=== PATIENT | female | born 1960 | race Caucasian/White ===

== ENCOUNTER 2019-08-22 09:11 | Observation (INO) | payer BC ==
--- NOTE | 2019-08-22 09:53 | EDM.PDOC ---
ED HPI GENERAL MEDICAL PROBLEM - General Chief Complaint: General Stated Complaint: FROM CLINIC ILL Time Seen by Provider: 08/22/19 09:40 Source of Information: Reports: Patient, Provider History Limitations: Reports: Other (no old records) - History of Present Illness INITIAL COMMENTS - FREE TEXT/NARRATIVE: 59 yo female presented to the clinic today with cough for a week. Drove herself to the appt. Was given a Duoneb in the clinic and got weak and needed support. She was vitally stable before and after this spell. Remains weak so referred to the ER for evaluation. Onset: Sudden (sudden weakness), Gradual (cough) Onset Date: 08/15/19 (cough onset) Duration: Week(s): (1) Location: Reports: Chest Quality: Reports: Other (none) Severity: Moderate Improves with: Reports: None Worsens with: Reports: Other (unsure) Context: Reports: Other (unknown) Associated Symptoms: Reports: Cough. 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 (see below) (Duoneb) - Related Data Allergies Allergy/AdvReac Type Severity Reaction Status Date / Time amoxicillin [From Augmentin] Allergy Cannot Verified 08/22/19 09:43 Remember clavulanic acid Allergy Cannot Verified 08/22/19 09:43 [From Augmentin] Remember codeine AdvReac Nausea Verified 08/22/19 09:43 Home Meds: Home Meds Levothyroxine Sodium [Synthroid] 1 tab PO DAILY 08/22/19 [History] Lysine 1 tab PO DAILY 08/22/19 [History] atorvaSTATin [Lipitor] 1 tab PO DAILY 08/22/19 [History] hydroCHLOROthiazide [Hydrochlorothiazide] 1 tab PO DAILY 08/22/19 [History] Social & Family History - Tobacco Use Smoking Status *Q: Never Smoker - Recreational Drug Use Recreational Drug Use: No ED ROS GENERAL - Review of Systems Review Of Systems: See Below Constitutional: Reports: No Symptoms HEENT: Reports: No Symptoms Respiratory: Reports: Cough. Denies: Shortness of Breath, Wheezing, Pleuritic Chest Pain, Sputum, Hemoptysis Cardiovascular: Reports: No Symptoms GI/Abdominal: Reports: No Symptoms : Reports: No Symptoms Musculoskeletal: Reports: No Symptoms Skin: Reports: No Symptoms Neurological: Reports: Syncope (near syncope in the clinic.) Psychiatric: Reports: No Symptoms ED EXAM, GENERAL - Physical Exam Exam: See Below Exam Limited By: No Limitations General Appearance: Alert, WD/WN, No Apparent Distress, Lethargic Eye Exam: Bilateral Eye: Normal Inspection Ears: Normal External Exam, Normal Canal, Hearing Grossly Normal, Normal TMs Ear Exam: Bilateral Ear: Auricle Normal, Canal Normal, TM normal Nose: Normal Inspection, No Blood Throat/Mouth: Normal Inspection, Normal Lips, Normal Oropharynx, Normal Voice, No Airway Compromise Head: Atraumatic, Normocephalic Neck: Normal Inspection Respiratory/Chest: No Respiratory Distress, Lungs Clear, Normal Breath Sounds, No Accessory Muscle Use Cardiovascular: Regular Rate, Rhythm, No Edema GI/Abdominal: Normal Bowel Sounds, Soft, Non-Tender, No Distention Back Exam: Other (kyphotic spine) Extremities: Normal Inspection, Normal Range of Motion, Non-Tender, No Pedal Edema Neurological: Alert, Oriented, CN II-XII Intact, Normal Cognition, No Motor/ Sensory Deficits Psychiatric: Normal Affect, Normal Mood Skin Exam: Warm, Dry, Intact, Normal Color, No Rash Course - Vital Signs Text/Narrative:: Dr. Underwood called @ 1052h Last Recorded V/S: Last Vital Signs Temp 36.1 C 08/22/19 09:41 Pulse 77 08/22/19 09:41 Resp 16 08/22/19 09:41 BP 150/74 H 08/22/19 09:41 Pulse Ox 95 08/22/19 09:41 Orthostatic Blood Pressure [ 137/87 Standing] Orthostatic Blood Pressure [ 135/83 Sitting] Orthostatic Blood Pressure [ 138/78 Supine] - Orders/Labs/Meds Orders: Active Orders 24 hr Category Date Time Status Cardiac Monitoring [RC] .As Directed Care 08/22/19 10:36 Active Orthostatic Vital Signs [RC] ASDIRECTED Care 08/22/19 09:29 Active Potassium Chloride [KCL 20 MEQ in Water 100 ML] 20 meq Med 08/22/19 10:36 Active Premix Bag 1 bag IV ONETIME Sodium Chloride 0.9% [Saline Flush] Med 08/22/19 10:30 Active 10 ml FLUSH ASDIRECTED PRN Saline Lock Insert [OM.PC] Routine Oth 08/22/19 10:30 Ordered Medication Orders Potassium Chloride 20 meq/ (Premix) 100 mls @ 50 mls/hr IV ONETIME ONE Stop: 08/22/19 12:35 Sodium Chloride (Saline Flush) 10 ml FLUSH ASDIRECTED PRN PRN Reason: Keep Vein Open Labs: Laboratory Tests 08/22/19 08/22/19 08/22/19 Range/Units 10:01 10:01 10:15 WBC 3.8 L (4.5-11.0) K/uL RBC 4.67 (3.30-5.50) M/uL Hgb 13.4 (12.0-15.0) g/dL Hct 41.5 (36.0-48.0) % MCV 89 (80-98) fL MCH 29 (27-31) pg MCHC 32 (32-36) % Plt Count 239 (150-400) K/uL Sodium 142 (140-148) mmol/L Potassium 2.7 L* (3.6-5.2) mmol/L Chloride 101 (100-108) mmol/L Carbon Dioxide 29 (21-32) mmol/L Anion Gap 14.7 H (5.0-14.0) mmol/L BUN 16 (7-18) mg/dL Creatinine 0.7 (0.6-1.0) mg/dL Est Cr Clr Drug Dosing 72.47 mL/min Estimated GFR (MDRD) > 60 (>60) Glucose 89 (74-106) mg/dL Calcium 8.9 (8.5-10.1) mg/dL Magnesium (1.8-2.4) mg/dL Troponin I < 0.017 (0.000-0.056) ng/mL Urine Color Yellow (YELLOW) Urine Appearance Clear (CLEAR) Urine pH 5.5 (5.0-8.0) Ur Specific [facility] 1.020 (1.008-1.030) Urine Protein Negative (NEGATIVE) mg/dL Urine Glucose (UA) Negative (NEGATIVE) mg/dL Urine Ketones 40 H (NEGATIVE) mg/dL Urine Occult Blood Negative (NEGATIVE) Urine Nitrite Negative (NEGATIVE) Urine Bilirubin Negative (NEGATIVE) Urine Urobilinogen 0.2 (0.2-1.0) EU/dL Ur Leukocyte Esterase Negative (NEGATIVE) Urine RBC Not seen (0-5) Urine WBC 0-5 (0-5) Ur Epithelial Cells Not seen Amorphous Sediment Not seen Urine Bacteria Not seen Urine Mucus Moderate 08/22/19 Range/Units 10:36 WBC (4.5-11.0) K/uL RBC (3.30-5.50) M/uL Hgb (12.0-15.0) g/dL Hct (36.0-48.0) % MCV (80-98) fL MCH (27-31) pg MCHC (32-36) % Plt Count (150-400) K/uL Sodium (140-148) mmol/L Potassium (3.6-5.2) mmol/L Chloride (100-108) mmol/L Carbon Dioxide (21-32) mmol/L Anion Gap (5.0-14.0) mmol/L BUN (7-18) mg/dL Creatinine (0.6-1.0) mg/dL Est Cr Clr Drug Dosing mL/min Estimated GFR (MDRD) (>60) Glucose (74-106) mg/dL Calcium (8.5-10.1) mg/dL Magnesium 1.6 L (1.8-2.4) mg/dL Troponin I (0.000-0.056) ng/mL Urine Color (YELLOW) Urine Appearance (CLEAR) Urine pH (5.0-8.0) Ur Specific [facility] (1.008-1.030) Urine Protein (NEGATIVE) mg/dL Urine Glucose (UA) (NEGATIVE) mg/dL Urine Ketones (NEGATIVE) mg/dL Urine Occult Blood (NEGATIVE) Urine Nitrite (NEGATIVE) Urine Bilirubin (NEGATIVE) Urine Urobilinogen (0.2-1.0) EU/dL Ur Leukocyte Esterase (NEGATIVE) Urine RBC (0-5) Urine WBC (0-5) Ur Epithelial Cells Amorphous Sediment Urine Bacteria Urine Mucus Meds: Medications Generic Name Dose Route Start Last Admin Trade Name Freq PRN Reason Stop Dose Admin Potassium Chloride 20 meq/ 100 mls @ 50 mls/hr 08/22/19 10:36 Premix IV 08/22/19 12:35 ONETIME ONE Sodium Chloride 10 ml 08/22/19 10:30 Saline Flush FLUSH ASDIRECTED PRN Keep Vein Open Discontinued Medications Generic Name Dose Route Start Last Admin Trade Name Freq PRN Reason Stop Dose Admin Magnesium Oxide 400 mg 08/22/19 10:50 Magnesium Oxide PO 08/22/19 10:51 ONETIME ONE Potassium Chloride 40 meq 08/22/19 10:35 Potassium Chloride PO 08/22/19 10:36 ONETIME ONE Departure - Departure Time of Disposition: 11:20 Disposition: Refer to Observation Condition: Fair Clinical Impression: Hypokalemia, Hypomagnesemia, Weakness, Cough - Discharge Information *PRESCRIPTION DRUG MONITORING PROGRAM REVIEWED*: Not Applicable *COPY OF PRESCRIPTION DRUG MONITORING REPORT IN PATIENT KITA: Not Applicable Referrals: Estella Mack MD [Primary Care Provider] - Forms: ED Department Discharge Sepsis Event Note - Evaluation Sepsis Screening Result: No Definite Risk - Focused Exam Vital Signs: Vital Signs Temp Pulse Resp BP Pulse Ox 08/22/19 09:41 36.1 C 77 16 150/74 H 95 08/22/19 09:27 36.1 C 77 16 150/74 H 95 Date Exam was Performed: 08/22/19 Time Exam was Performed: 10:53 - My Orders Last 24 Hours: My Active Orders 08/22/19 09:29 Orthostatic Vital Signs [RC] ASDIRECTED 08/22/19 10:30 Sodium Chloride 0.9% [Saline Flush] 10 ml FLUSH ASDIRECTED PRN Saline Lock Insert [OM.PC] Routine 08/22/19 10:36 Cardiac Monitoring [RC] .As Directed Potassium Chloride [KCL 20 MEQ in Water 100 ML] 20 meq Premix Bag 1 bag IV ONETIME - Assessment/Plan Last 24 Hours: My Active Orders 08/22/19 09:29 Orthostatic Vital Signs [RC] ASDIRECTED 08/22/19 10:30 Sodium Chloride 0.9% [Saline Flush] 10 ml FLUSH ASDIRECTED PRN Saline Lock Insert [OM.PC] Routine 08/22/19 10:36 Cardiac Monitoring [RC] .As Directed Potassium Chloride [KCL 20 MEQ in Water 100 ML] 20 meq Premix Bag 1 bag IV ONETIME
[2019-08-22] MEDS ORDERED: Sodium Chloride 0.9% 10 ML Syringe FLUSH PRN ×2 (10:30→12:31)
[2019-08-22] MEDS ORDERED: Potassium Chloride 10 MEQ Cap.ER PO ONE (10:35)
[2019-08-22] MEDS ORDERED: Potassium Chloride 20 MEQ in Premix Bag 1 BAG IV ONE (10:36)
[2019-08-22] MEDS ORDERED: Magnesium Oxide 400 MG Tab PO ONE (10:50)
--- NOTE | 2019-08-22 11:57 | PCM.HP.2 ---
H&P History of Present Illness - General Date of Service: 08/22/19 Admit Problem/Dx: Admission Diagnosis/Problem Admission Diagnosis/Problem Hypokalemia Source of Information: Patient, Family, Provider, RN Notes Reviewed History Limitations: Reports: No Limitations - History of Present Illness Initial Comments - Free Text/Narative: Rev. Valerio is a 59-year-old woman who was admitted through the emergency department observation status with a syncopal episode and weakness secondary to underlying hypokalemia and influenza A. She has not felt well over the past 5 days with symptoms of weakness, myalgias, fever, and cough. Because of progressive symptoms she presented to the walk-in clinic for further evaluation and management. While there she was receiving a nebulizer treatment and experienced a syncopal episode. She was brought to the emergency department for further evaluation and management. Chest x-ray shows no obvious infiltrates. Influenza a antigen was found to be positive explaining her recent respiratory symptoms. Blood cell count was within normal range and other labs were unremarkable except for a potassium level of 2.7. It was felt likely that the albuterol neb had lowered her serum potassium level even further at this likely contributed to her syncopal episode. - Related Data Allergies/Adverse Reactions: Allergies Allergy/AdvReac Type Severity Reaction Status Date / Time amoxicillin [From Augmentin] Allergy Cannot Verified 08/22/19 09:43 Remember clavulanic acid Allergy Cannot Verified 08/22/19 09:43 [From Augmentin] Remember codeine AdvReac Nausea Verified 08/22/19 09:43 Home Medications: Home Meds Levothyroxine Sodium [Synthroid] 137 mcg PO ACBREAKFAST 08/22/19 [History] Lysine 1 tab PO DAILY 08/22/19 [History] atorvaSTATin [Lipitor] 40 mg PO DAILY 08/22/19 [History] hydroCHLOROthiazide [Hydrochlorothiazide] 50 mg PO DAILY 08/22/19 [History] Past Medical History HEENT History: Reports: Impaired Vision Cardiovascular History: Reports: High Cholesterol, Hypertension, [place] [employer] History: Reports: Musculoskeletal History: Reports: Fracture Endocrine/Metabolic History: Reports: Hypothyroidism Hematologic History: Reports: Iron Deficiency Oncologic (Cancer) History: Reports: Breast - Past Surgical History Cardiovascular Surgical History: Reports: Coronary Artery Stent GI Surgical History: Reports: Bariatric Procedure, Cholecystectomy Female Surgical History: Reports: Breast Reconstruction Oncologic Surgical History: Reports: Mastectomy Social & Family History - Tobacco Use Smoking Status *Q: Never Smoker - Recreational Drug Use Recreational Drug Use: No H&P Review of Systems - Review of Systems: Review Of Systems: See Below General: Reports: Fever, Chills, Malaise, Weakness, Decreased Appetite HEENT: Reports: No Symptoms Pulmonary: Reports: Shortness of Breath, Cough. Denies: Pleuritic Chest Pain, Sputum, Hemoptysis Cardiovascular: Reports: Dyspnea on Exertion, Lightheadedness, Syncope. Denies : Chest Pain, Palpitations, Orthopnea, PND, Edema Gastrointestinal: Reports: No Symptoms Genitourinary: Reports: No Symptoms Musculoskeletal: Reports: Muscle Pain, Muscle Stiffness Skin: Reports: No Symptoms Psychiatric: Reports: No Symptoms Neurological: Reports: No Symptoms Hematologic/Lymphatic: Reports: No Symptoms Immunologic: Reports: No Symptoms Exam - Exam Exam: See Below - Vital Signs Vital Signs: Last Vital Signs Temp 97.0 F 08/22/19 09:41 Pulse 89 08/22/19 10:05 Resp 16 08/22/19 10:05 BP 137/87 08/22/19 10:05 Pulse Ox 99 08/22/19 10:05 Orthostatic Blood Pressure [ 137/87 Standing] Orthostatic Blood Pressure [ 135/83 Sitting] Orthostatic Blood Pressure [ 138/78 Supine] Weight: 156 lb - Exam Quality Assessment: DVT Prophylaxis General: Alert, Oriented, Cooperative, Moderate Distress HEENT: Conjunctiva Clear, Hearing Intact, Mucosa Moist & [place], Normal Nasal Septum, Posterior Pharynx Clear, Pupils Equal Neck: Supple, Trachea Midline, +2 Carotid Pulse wo Bruit Lungs: Clear to Auscultation, Normal Respiratory Effort Cardiovascular: Regular Rate, Regular Rhythm, Normal S1, Normal S2. No: Systolic Murmur, Diastolic Murmur GI/Abdominal Exam: Soft, Non-Tender, No Organomegaly, No Distention Back Exam: Normal Inspection, Full Range of Motion Extremities: Normal Inspection, Normal Range of Motion, No Pedal Edema Skin: Warm, Dry, Intact Neurological: Cranial Nerves Intact, Strength Equal Bilateral, Normal Speech, Normal Tone, Sensation Intact. No: Focal Deficit Neuro Extensive - Mental Status: Alert, Oriented x3, Normal Mood/Affect, Normal Cognition, Memory Intact - Patient Data Lab Results Last 24 hrs: Laboratory Results - last 24 hr 08/22/19 08/22/1908/22/20 Range/Units 10:01 10:01 10:15 WBC 3.8 L (4.5-11.0) K/uL RBC 4.67 (3.30-5.50) M/uL Hgb 13.4 (12.0-15.0) g/dL Hct 41.5 (36.0-48.0) % MCV 89 (80-98) fL MCH 29 (27-31) pg MCHC 32 (32-36) % Plt Count 239 (150-400) K/uL Sodium 142 (140-148) mmol/L Potassium 2.7 L* (3.6-5.2) mmol/L Chloride 101 (100-108) mmol/L Carbon Dioxide 29 (21-32) mmol/L Anion Gap 14.7 H (5.0-14.0) mmol/L BUN 16 (7-18) mg/dL Creatinine 0.7 (0.6-1.0) mg/dL Est Cr Clr Drug Dosing 72.47 mL/min Estimated GFR (MDRD) > 60 (>60) Glucose 89 (74-106) mg/dL Calcium 8.9 (8.5-10.1) mg/dL Magnesium (1.8-2.4) mg/dL Troponin I < 0.017 (0.000-0.056) ng/mL Urine Color Yellow (YELLOW) Urine Appearance Clear (CLEAR) Urine pH 5.5 (5.0-8.0) Ur Specific [place] 1.020 (1.008-1.030) Urine Protein Negative (NEGATIVE) mg/dL Urine Glucose (UA) Negative (NEGATIVE) mg/dL Urine Ketones 40 H (NEGATIVE) mg/dL Urine Occult Blood Negative (NEGATIVE) Urine Nitrite Negative (NEGATIVE) Urine Bilirubin Negative (NEGATIVE) Urine Urobilinogen 0.2 (0.2-1.0) EU/dL Ur Leukocyte Esterase Negative (NEGATIVE) Urine RBC Not seen (0-5) Urine WBC 0-5 (0-5) Ur Epithelial Cells Not seen Amorphous Sediment Not seen Urine Bacteria Not seen Urine Mucus Moderate 08/22/19 Range/Units 10:36 WBC (4.5-11.0) K/uL RBC (3.30-5.50) M/uL Hgb (12.0-15.0) g/dL Hct (36.0-48.0) % MCV (80-98) fL MCH (27-31) pg MCHC (32-36) % Plt Count (150-400) K/uL Sodium (140-148) mmol/L Potassium (3.6-5.2) mmol/L Chloride (100-108) mmol/L Carbon Dioxide (21-32) mmol/L Anion Gap (5.0-14.0) mmol/L BUN (7-18) mg/dL Creatinine (0.6-1.0) mg/dL Est Cr Clr Drug Dosing mL/min Estimated GFR (MDRD) (>60) Glucose (74-106) mg/dL Calcium (8.5-10.1) mg/dL Magnesium 1.6 L (1.8-2.4) mg/dL Troponin I (0.000-0.056) ng/mL Urine Color (YELLOW) Urine Appearance (CLEAR) Urine pH (5.0-8.0) Ur Specific [place] (1.008-1.030) Urine Protein (NEGATIVE) mg/dL Urine Glucose (UA) (NEGATIVE) mg/dL Urine Ketones (NEGATIVE) mg/dL Urine Occult Blood (NEGATIVE) Urine Nitrite (NEGATIVE) Urine Bilirubin (NEGATIVE) Urine Urobilinogen (0.2-1.0) EU/dL Ur Leukocyte Esterase (NEGATIVE) Urine RBC (0-5) Urine WBC (0-5) Ur Epithelial Cells Amorphous Sediment Urine Bacteria Urine Mucus Result Diagrams: 08/22/19 10:01 08/22/19 10:01 Sepsis Event Note - Evaluation Sepsis Screening Result: No Definite Risk - Focused Exam Vital Signs: Vital Signs Temp Pulse Resp BP Pulse Ox 08/22/19 10:05 89 16 137/87 99 08/22/19 09:41 97.0 F 77 16 150/74 H 95 08/22/19 09:27 97.0 F 77 16 150/74 H 95 Date Exam was Performed: 08/22/19 Time Exam was Performed: 13:35 *Q Meaningful Use (ADM) - VTE Risk Assess *Q Each Risk Factor Represents 1 Point: Age 41 - 59 years Total Score 1 Point Risk Factors: 1 Each Risk Factor Represents 2 Points: Malignancy (present or previous) Total Score 2 Point Risk Factors: 2 Each Risk Factor Represents 3 Points: None Total Score 3 Point Risk Factors: 0 Each Risk Factor Represents 5 Points: None Total Score 5 Point Risk Factors: 0 Venous Thromboembolism Risk Factor Score *Q: 3 Problem List Initiated/Reviewed/Updated: Yes Orders Last 24hrs: Active Orders 24 hr Category Date Time Status Patient Status Manage Transfer [TRANSFER] Routine ADT 08/22/19 11:47 Ordered Cardiac Monitoring [RC] .As Directed Care 08/22/19 10:36 Active Orthostatic Vital Signs [RC] ASDIRECTED Care 08/22/19 09:29 Active Chest 2V [CR] Stat Exams 08/22/19 11:44 Ordered INFLUENZA A+B AG SCREEN [RM] Stat Lab 08/22/19 11:45 Ordered Potassium Chloride [KCL 20 MEQ in Water 100 ML] 20 meq Med 08/22/19 10:36 Active Premix Bag 1 bag IV ONETIME Sodium Chloride 0.9% [Saline Flush] Med 08/22/19 10:30 Active 10 ml FLUSH ASDIRECTED PRN Saline Lock Insert [OM.PC] Routine Oth 08/22/19 10:30 Ordered Resuscitation Status Routine Resus Stat 08/22/19 11:49 Ordered Medication Orders Potassium Chloride 20 meq/ (Premix) 100 mls @ 50 mls/hr IV ONETIME ONE Stop: 08/22/19 12:35 Last Admin: 08/22/19 10:55 Dose: 50 mls/hr Sodium Chloride (Saline Flush) 10 ml FLUSH ASDIRECTED PRN PRN Reason: Keep Vein Open Last Admin: 08/22/19 10:56 Dose: 10 ml Assessment/Plan Comment:: ASSESSMENT AND PLAN HYPOKALEMIA-likely secondary to ongoing therapy with hydrochlorothiazide -IV and oral potassium replacement -Follow-up potassium level later tonight and again in a.m. -Consider switching antihypertensive therapy to a medication with combined hydrochlorothiazide and Spironolactone SYNCOPAL EPISODE-likely secondary to current infection with influenza A as well as hypokalemia and exacerbation of hypokalemia with the albuterol neb. -Cardiac monitoring -Orthostatic vital signs INFLUENZA A-because of her respiratory symptoms over the past 5 days. She is not a candidate for Tamiflu because of duration of symptoms over 48 hours. -IV fluids for hydration -Supportive care and symptom management MAINTENANCE ISSUES -DVT prophylaxis; SCUDs -GI prophylaxis; not indicated -Miguel catheter; not indicated -Nutrition; 2 g sodium diet -Nicotine dependence; not required CODE STATUS-FULL CODE ADMISSION STATUS-this patient will be admitted to observation status, expect no more than a one night hospital stay for evaluation and management of problems as outlined above. DISPOSITION-anticipate discharge to home after the hospital stay. PRIMARY CARE PROVIDER-Dr. Mack - Mortality Measure Prognosis:: Good
[2019-08-22] MEDS ORDERED: Ondansetron 4 MG/2 ML SDV IV PRN (12:31)
[2019-08-22] MEDS ORDERED: Ibuprofen 400 MG Tab PO PRN (12:31)
[2019-08-22] MEDS ORDERED: Polyethylene Glycol 3350 Powder 17 GM Packet PO PRN (12:31)
[2019-08-22] MEDS ORDERED: Acetaminophen 325 MG Tab PO PRN (12:31)
[2019-08-22] MEDS ORDERED: Potassium Chloride 20 MEQ Tab.ER PO ONE ×2 (13:00→17:00)
[2019-08-22] MEDS: Sodium Chloride 0.9% 1,000 ML IV SCH ×2 (13:07→20:51)
[2019-08-22] MEDS ORDERED: Potassium Chloride Riders 40 MEQ in Premix Bag 1 BAG IV ONE (13:30)
[2019-08-22] MEDS: guaiFENesin/Dextromethorphan 100-10 MG/5 ML Soln 10 ML Cup PO PRN ×2 (14:55→21:02)
[2019-08-23] MEDS: Sodium Chloride 0.9% 1,000 ML IV SCH (04:59)
[2019-08-23] MEDS ORDERED: Non-Formulary Medication 1 Each (Hydrochlorothiazide [Hydrochlorothiazide] 1 TAB) PO SCH (09:00)
[2019-08-23] MEDS ORDERED: LEVOTHYROXINE SODIUM PO SCH (09:00)
[2019-08-23] MEDS ORDERED: atorvaSTATin 20 MG Tab PO SCH (09:00)
[2019-08-23] MEDS ORDERED: Hydrochlorothiazide 25 MG Tab PO SCH (09:00)
[2019-08-23] MEDS ORDERED: ATORVASTATIN PO SCH (09:00)
--- NOTE | 2019-08-23 09:07 | PCM.DCSUM1 ---
Discharge Summary - Hospital Course Brief History: Rev. Valerio is a 60-year-old woman who was admitted through the emergency department after a syncopal episode, secondary to hypokalemia and influenza a. - Discharge Data Discharge Date: 08/23/19 Discharge Disposition: Home, Self-Care 01 Condition: Fair - Referral to Home Health Primary Care Physician: Estella Mack MD - Discharge Diagnosis/Problem(s) (1) Influenza A SNOMED Code(s): 266487823 ICD Code: J10.1 - FLU DUE TO OTH IDENT INFLUENZA VIRUS W OTH RESP MANIFEST Status: Acute Current Visit: Yes (2) Hypokalemia SNOMED Code(s): 78496474 ICD Code: E87.6 - HYPOKALEMIA Status: Acute Current Visit: Yes (3) Weakness SNOMED Code(s): 08338251 ICD Code: R53.1 - WEAKNESS Status: Acute Current Visit: Yes - Patient Summary/Data Hospital Course: Rev. Valerio is a 59-year-old woman who was admitted through the emergency department to observation status with a syncopal episode and weakness secondary to underlying hypokalemia and influenza A. She has not felt well over the past 5 days with symptoms of weakness, myalgias, fever, and cough. Because of progressive symptoms she presented to the walk-in clinic for further evaluation and management. While there she was receiving a nebulizer treatment and experienced a syncopal episode. She was brought to the emergency department for further evaluation and management. Chest x-ray shows no obvious infiltrates. Influenza a antigen was found to be positive explaining her recent respiratory symptoms. White blood cell count was within normal range and other labs were unremarkable except for a potassium level of 2.7. It was felt likely that the albuterol neb had lowered her serum potassium level even further and this likely contributed to her syncopal episode. She was admitted to the hospital and given IV fluids for hydration. She was not started on Tamiflu as the duration of her symptoms had been over 48 hours. She was given IV and oral potassium replacement. Follow-up potassium level on the evening of admission showed the potassium level had returned to normal range. Follow-up potassium level on the morning of discharge also remained within normal range. Antihypertensive therapy will be altered, hydrochlorothiazide 50 mg will be discontinued. She will be started on triamterene hydrochlorothiazide better maintain her potassium level. Activity will be as tolerated and she will resume her usual diet. Follow-up appointment will be scheduled with her primary care provider within 1 week. - Patient Instructions Diet: Low Sodium Activity: As Tolerated Other/Special Instructions: Please schedule follow-up appointment with primary care provider within 1 week. - Discharge Plan *PRESCRIPTION DRUG MONITORING PROGRAM REVIEWED*: Not Applicable *COPY OF PRESCRIPTION DRUG MONITORING REPORT IN PATIENT KITA: Not Applicable Prescriptions/Med Rec: Triamterene/Hydrochlorothiazid [Dyazide 37.5-25 Capsule] 1 each PO DAILY #30 capsule Home Medications: Home Meds Levothyroxine Sodium [Synthroid] 137 mcg PO ACBREAKFAST 08/22/19 [History] Lysine 1 tab PO DAILY 08/22/19 [History] atorvaSTATin [Lipitor] 40 mg PO DAILY 08/22/19 [History] Triamterene/Hydrochlorothiazid [Dyazide 37.5-25 Capsule] 1 each PO DAILY #30 capsule 08/23/19 [Rx] Patient Handouts: Hypokalemia, Potassium Content of Foods Referrals: Estella Mack MD [Primary Care Provider] - - Discharge Summary/Plan Comment DC Time >30 min.: No - Patient Data Vitals - Most Recent: Last Vital Signs Temp 97.1 F 08/23/19 07:44 Pulse 62 08/22/19 17:00 Resp 14 08/23/19 07:44 BP 135/80 08/23/19 07:44 Pulse Ox 97 08/23/19 07:44 Orthostatic Blood Pressure [ 124/71 Standing] Orthostatic Blood Pressure [ 124/78 Sitting] Orthostatic Blood Pressure [ 112/48 Supine] Weight - Most Recent: 156 lb I&O - Last 24 hours: Intake & Output 08/22/19 08/23/19 08/23/19 22:59 06:59 14:59 Intake Total 100 2202 Output Total 450 500 Balance -350 1702 Lab Results - Last 24 hrs: Laboratory Results - last 24 hr 08/22/19 08/22/19 08/22/19 Range/Units 10:01 10:01 10:15 WBC 3.8 L (4.5-11.0) K/uL RBC 4.67 (3.30-5.50) M/uL Hgb 13.4 (12.0-15.0) g/dL Hct 41.5 (36.0-48.0) % MCV 89 (80-98) fL MCH 29 (27-31) pg MCHC 32 (32-36) % Plt Count 239 (150-400) K/uL Sodium 142 (140-148) mmol/L Potassium 2.7 L* (3.6-5.2) mmol/L Chloride 101 (100-108) mmol/L Carbon Dioxide 29 (21-32) mmol/L Anion Gap 14.7 H (5.0-14.0) mmol/L BUN 16 (7-18) mg/dL Creatinine 0.7 (0.6-1.0) mg/dL Est Cr Clr Drug Dosing 72.47 mL/min Estimated GFR (MDRD) > 60 (>60) Glucose 89 (74-106) mg/dL Calcium 8.9 (8.5-10.1) mg/dL Magnesium (1.8-2.4) mg/dL Troponin I < 0.017 (0.000-0.056) ng/mL TSH, Ultra Sensitive (0.358-3.740) uIU/mL Urine Color Yellow (YELLOW) Urine Appearance Clear (CLEAR) Urine pH 5.5 (5.0-8.0) Ur Specific [place] 1.020 (1.008-1.030) Urine Protein Negative (NEGATIVE) mg/dL Urine Glucose (UA) Negative (NEGATIVE) mg/dL Urine Ketones 40 H (NEGATIVE) mg/dL Urine Occult Blood Negative (NEGATIVE) Urine Nitrite Negative (NEGATIVE) Urine Bilirubin Negative (NEGATIVE) Urine Urobilinogen 0.2 (0.2-1.0) EU/dL Ur Leukocyte Esterase Negative (NEGATIVE) Urine RBC Not seen (0-5) Urine WBC 0-5 (0-5) Ur Epithelial Cells Not seen Amorphous Sediment Not seen Urine Bacteria Not seen Urine Mucus Moderate 08/22/19 08/22/19 08/23/19 Range/Units 10:36 19:55 05:45 WBC (4.5-11.0) K/uL RBC (3.30-5.50) M/uL Hgb (12.0-15.0) g/dL Hct (36.0-48.0) % MCV (80-98) fL MCH (27-31) pg MCHC (32-36) % Plt Count (150-400) K/uL Sodium (140-148) mmol/L Potassium 4.1 (3.6-5.2) mmol/L Chloride (100-108) mmol/L Carbon Dioxide (21-32) mmol/L Anion Gap (5.0-14.0) mmol/L BUN (7-18) mg/dL Creatinine (0.6-1.0) mg/dL Est Cr Clr Drug Dosing mL/min Estimated GFR (MDRD) (>60) Glucose (74-106) mg/dL Calcium (8.5-10.1) mg/dL Magnesium 1.6 L (1.8-2.4) mg/dL Troponin I (0.000-0.056) ng/mL TSH, Ultra Sensitive 1.017 (0.358-3.740) uIU/mL Urine Color (YELLOW) Urine Appearance (CLEAR) Urine pH (5.0-8.0) Ur Specific [place] (1.008-1.030) Urine Protein (NEGATIVE) mg/dL Urine Glucose (UA) (NEGATIVE) mg/dL Urine Ketones (NEGATIVE) mg/dL Urine Occult Blood (NEGATIVE) Urine Nitrite (NEGATIVE) Urine Bilirubin (NEGATIVE) Urine Urobilinogen (0.2-1.0) EU/dL Ur Leukocyte Esterase (NEGATIVE) Urine RBC (0-5) Urine WBC (0-5) Ur Epithelial Cells Amorphous Sediment Urine Bacteria Urine Mucus 08/23/19 Range/Units 05:45 WBC (4.5-11.0) K/uL RBC (3.30-5.50) M/uL Hgb (12.0-15.0) g/dL Hct (36.0-48.0) % MCV (80-98) fL MCH (27-31) pg MCHC (32-36) % Plt Count (150-400) K/uL Sodium (140-148) mmol/L Potassium 4.2 (3.6-5.2) mmol/L Chloride (100-108) mmol/L Carbon Dioxide (21-32) mmol/L Anion Gap (5.0-14.0) mmol/L BUN (7-18) mg/dL Creatinine (0.6-1.0) mg/dL Est Cr Clr Drug Dosing mL/min Estimated GFR (MDRD) (>60) Glucose (74-106) mg/dL Calcium (8.5-10.1) mg/dL Magnesium (1.8-2.4) mg/dL Troponin I (0.000-0.056) ng/mL TSH, Ultra Sensitive (0.358-3.740) uIU/mL Urine Color (YELLOW) Urine Appearance (CLEAR) Urine pH (5.0-8.0) Ur Specific [place] (1.008-1.030) Urine Protein (NEGATIVE) mg/dL Urine Glucose (UA) (NEGATIVE) mg/dL Urine Ketones (NEGATIVE) mg/dL Urine Occult Blood (NEGATIVE) Urine Nitrite (NEGATIVE) Urine Bilirubin (NEGATIVE) Urine Urobilinogen (0.2-1.0) EU/dL Ur Leukocyte Esterase (NEGATIVE) Urine RBC (0-5) Urine WBC (0-5) Ur Epithelial Cells Amorphous Sediment Urine Bacteria Urine Mucus TARIK Results - Last 24 hrs: Microbiology 08/22/19 12:07 Influenza Type A Antigen Screen - Final Nasal, Unspecified Positive Influenza A Ag Influenza Type B Antigen Screen - Final NEGATIVE INFLUENZA B VIRUS AG REFERENCE RANGE: NEGATIVE Med Orders - Current: Current Medications Acetaminophen (Tylenol) 650 mg PO Q4H PRN PRN Reason: Pain (Mild 1-3)/fever Atorvastatin Calcium (Lipitor) 40 mg PO DAILY [facility] Last Admin: 08/23/19 08:28 Dose: Not Given Guaifenesin/Dextromethorphan (Robitussin Dm) 10 ml PO Q4H PRN PRN Reason: Cough Last Admin: 08/22/19 21:02 Dose: 10 ml Hydrochlorothiazide (Hydrochlorothiazide) 50 mg PO DAILY [facility] Last Admin: 08/23/19 08:28 Dose: Not Given Sodium Chloride (Normal Saline) 1,000 mls @ 125 mls/hr IV ASDIRECTED [facility] Last Admin: 08/23/19 04:59 Dose: 125 mls/hr Ibuprofen (Motrin) 400 mg PO Q6H PRN PRN Reason: Pain (mild 1-3) Levothyroxine Sodium 112 mcg/ (Levothyroxine Sodium 25 mcg) 137 mcg PO ACBREAKFAST [facility] Last Admin: 08/23/19 07:39 Dose: Not Given Ondansetron HCl (Zofran) 4 mg IV Q4H PRN PRN Reason: Nausea/Vomiting Polyethylene Glycol (Miralax) 17 gm PO DAILY PRN PRN Reason: Constipation Sodium Chloride (Saline Flush) 10 ml FLUSH ASDIRECTED PRN PRN Reason: Keep Vein Open Discontinued Medications Potassium Chloride 20 meq/ (Premix) 100 mls @ 50 mls/hr IV ONETIME ONE Stop: 08/22/19 12:35 Last Admin: 08/22/19 10:55 Dose: 50 mls/hr Potassium Chloride 40 meq/ (Premix) 100 mls @ 25 mls/hr IV ONETIME ONE Stop: 08/22/19 17:29 Last Admin: 08/22/19 13:07 Dose: 25 mls/hr Magnesium Oxide (Magnesium Oxide) 400 mg PO ONETIME ONE Stop: 08/22/19 10:51 Last Admin: 08/22/19 10:58 Dose: 400 mg Potassium Chloride (Potassium Chloride) 40 meq PO ONETIME ONE Stop: 08/22/19 10:36 Last Admin: 08/22/19 10:56 Dose: 40 meq Potassium Chloride (Klor-Con M20) 40 meq PO ONETIME ONE Stop: 08/22/19 13:01 Last Admin: 08/22/19 13:06 Dose: 40 meq Potassium Chloride (Klor-Con M20) 40 meq PO ONETIME ONE Stop: 08/22/19 17:01 Last Admin: 08/22/19 17:04 Dose: 40 meq Sodium Chloride (Saline Flush) 10 ml FLUSH ASDIRECTED PRN PRN Reason: Keep Vein Open Last Admin: 08/22/19 10:56 Dose: 10 ml - Exam General: Reports: Alert, Oriented, Cooperative, Mild Distress Lungs: Reports: Clear to Auscultation, Normal Respiratory Effort Cardiovascular: Reports: Regular Rate, Regular Rhythm, No Murmurs GI/Abdominal Exam: Soft, Non-Tender, No Organomegaly, No Distention Extremities: Non-Tender, No Pedal Edema
--- NOTE | 2019-08-25 08:42 | CR ---
CHEST: 2 view CLINICAL HISTORY:Cough COMPARISON:None FINDINGS: The heart size, pulmonary vascular and hilar structures are normal. No infiltrate effusion or pneumothorax is seen. Patient has an [id number] catheter from the right jugular approach. IMPRESSION: No acute cardiopulmonary process.
== END 2019-08-23 10:28 | disposition home or self-care (01) ==
LOC: JP.ED 09:11 → JP.ICU 11:47
PROVIDERS: ADMIT Hospitalist; ATTEND Hospitalist
DX: E87.6 Hypokalemia (principal); J10.1 Influenza due to other identified influenza virus with other respiratory manifestations; I10 Essential (primary) hypertension; E78.00 Pure hypercholesterolemia, unspecified; I25.2 Old myocardial infarction; E03.9 Hypothyroidism, unspecified; Z79.899 Other long term (current) drug therapy; Z88.0 Allergy status to penicillin; Z88.5 Allergy status to narcotic agent; Z88.1 Allergy status to other antibiotic agents
CPT/HCPCS: 36415; 71046; 80048; 81001; 83735; 84132; 84443; 84484; 85027; 87804; 96365; 96366; 96376; 99285; A9270; J1642; J3480; J7030; 96361; G0378

== ENCOUNTER 2020-05-14 12:14 | Emergency (ER) | payer BC ==
[2020-05-14] MEDS ORDERED: Potassium Chloride 20 MEQ in Premix Bag 1 BAG IV ONE (14:18)
[2020-05-14] MEDS ORDERED: Acetaminophen 325 MG Tab PO ONE (14:18)
[2020-05-14] MEDS ORDERED: Lactated Ringers 1,000 ML IV ONE (14:18)
[2020-05-14] MEDS ORDERED: Potassium Chloride 20 MEQ Tab.ER PO ONE (14:19)
[2020-05-14] MEDS ORDERED: Prochlorperazine 10 MG/2 ML SDV IVPUSH ONE (14:19)
--- NOTE | 2020-05-14 15:02 | EDM.PDOC ---
ED HPI GENERAL MEDICAL PROBLEM - General Chief Complaint: General Stated Complaint: REACTION TO NEBULLIZER MEDICINE Time Seen by Provider: 05/14/20 13:56 Source of Information: Reports: Patient History Limitations: Reports: No Limitations - History of Present Illness INITIAL COMMENTS - FREE TEXT/NARRATIVE: This is a 59-year-old female who presents with vague sensation of feeling confused and off. She was seen in the urgent care earlier today for shortness of breath. Had a chest x-ray lab work and Covid test performed. Work-up was unremarkable. Covid testing still pending she had a negative one 4 days ago. She was administered a neb after which she became more somnolent. She has a history of this happening in the past, was hospitalized earlier this year after nebs when she was found to be hypokalemic. She is slowly feeling better now she had does have a headache. She had a cough and shortness of breath along with myalgias for approximately 1 week. - Related Data Allergies Allergy/AdvReac Type Severity Reaction Status Date / Time amoxicillin [From Augmentin] Allergy Cannot Verified 08/22/19 09:43 Remember clavulanic acid Allergy Cannot Verified 08/22/19 09:43 [From Augmentin] Remember codeine AdvReac Nausea Verified 08/22/19 09:43 Home Meds: Home Meds Levothyroxine Sodium [Synthroid] 137 mcg PO ACBREAKFAST 08/22/19 [History] Lysine 1 tab PO DAILY 08/22/19 [History] atorvaSTATin [Lipitor] 40 mg PO DAILY 08/22/19 [History] Triamterene/Hydrochlorothiazid [Dyazide 37.5-25 Capsule] 1 each PO DAILY #30 capsule 08/23/19 [Rx] Aspirin 81 mg PO DAILY 05/14/20 [History] predniSONE [Prednisone] 0 mg PO DAILY 05/14/20 [History] Past Medical History HEENT History: Reports: Impaired Vision Cardiovascular History: Reports: High Cholesterol, Hypertension, MS [employer] History: Reports: Musculoskeletal History: Reports: Fracture Endocrine/Metabolic History: Reports: Hypothyroidism Hematologic History: Reports: Iron Deficiency Oncologic (Cancer) History: Reports: Breast - Past Surgical History Cardiovascular Surgical History: Reports: Coronary Artery Stent GI Surgical History: Reports: Bariatric Procedure, Cholecystectomy Female Surgical History: Reports: Breast Reconstruction Oncologic Surgical History: Reports: Mastectomy Social & Family History - Tobacco Use Tobacco Use Status *Q: Never Tobacco User - Caffeine Use Caffeine Use: Reports: Coffee - Recreational Drug Use Recreational Drug Use: No ED ROS GENERAL - Review of Systems Review Of Systems: See Below Constitutional: Reports: Weakness HEENT: Reports: No Symptoms Respiratory: Reports: Cough Cardiovascular: Reports: No Symptoms Endocrine: Reports: Fatigue GI/Abdominal: Reports: No Symptoms : Reports: No Symptoms Musculoskeletal: Reports: Muscle Pain Skin: Reports: No Symptoms Neurological: Reports: Confusion Psychiatric: Reports: No Symptoms Hematologic/Lymphatic: Reports: No Symptoms Immunologic: Reports: No Symptoms ED EXAM, GENERAL - Physical Exam Exam: See Below Exam Limited By: No Limitations General Appearance: Alert, No Apparent Distress Ears: Normal External Exam Nose: Normal Inspection Throat/Mouth: Normal Inspection Head: Atraumatic, Normocephalic Neck: Normal Inspection Respiratory/Chest: No Respiratory Distress Cardiovascular: Regular Rate, Rhythm GI/Abdominal: Soft, Non-Tender Back Exam: Normal Inspection Extremities: Normal Inspection Neurological: Alert, Oriented Psychiatric: Normal Affect, Normal Mood Skin Exam: Warm, Dry Course - Vital Signs Last Recorded V/S: Last Vital Signs Temp 36.1 C 05/14/20 12:31 Pulse 72 05/14/20 15:24 Resp 15 05/14/20 16:24 BP 118/70 05/14/20 16:24 Pulse Ox 98 05/14/20 16:24 - Orders/Labs/Meds Labs: Laboratory Tests 05/14/20 05/14/20 Range/Units 13:14 17:22 Sodium 141 (140-148) mmol/L Potassium 3.1 L 4.0 (3.6-5.2) mmol/L Chloride 103 (100-108) mmol/L Carbon Dioxide 28 (21-32) mmol/L Anion Gap 13.1 (5.0-14.0) mmol/L BUN 20 H (7-18) mg/dL Creatinine 0.7 (0.6-1.0) mg/dL Est Cr Clr Drug Dosing 72.47 mL/min Estimated GFR (MDRD) > 60 (>60) Glucose 94 (74-106) mg/dL Calcium 9.1 (8.5-10.1) mg/dL Meds: Medications Discontinued Medications Generic Name Dose Route Start Last Admin Trade Name Freq PRN Reason Stop Dose Admin Acetaminophen 650 mg 05/14/20 14:18 11/13/20 14:56 Tylenol PO 05/14/20 14:19 650 mg NOW ONE Administration Lactated Ringer's 1,000 mls @ 999 mls/hr 05/14/20 14:18 05/14/20 14:55 Ringers, Lactated IV 05/14/20 15:18 999 mls/hr BOLUS ONE Administration Potassium Chloride 20 meq/ 100 mls @ 50 mls/hr 05/14/20 14:18 05/14/20 14:56 Premix IV 05/14/20 16:17 50 mls/hr ONETIME ONE Administration Potassium Chloride 40 meq 05/14/20 14:19 05/14/20 14:56 Klor-Con M20 PO 05/14/20 14:20 40 meq ONETIME ONE Administration Prochlorperazine Edisylate 5 mg 05/14/20 14:19 Compazine IVPUSH 05/14/20 14:20 ONETIME ONE - Re-Assessments/Exams Free Text/Narrative Re-Assessment/Exam: 59-year-old presents with increased somnolence and confusion following a neb treatment while being worked up for ongoing cough and shortness of breath. Here she has normal vitals and a reassuring exam. Interestingly, her potassium was checked in clinic earlier this morning and was 3.5. Repeat check here now approximately 2 to 3 hours after noting it is 3.1. It was hypothesized during her previous hospitalization that perhaps she is very sensitive to nebulization uncovers her potassium levels. From a respiratory standpoint, she appears stable. She has been adequately w orked up. She has a Covid test pending. This does sound like a viral syndrome. I think she will be safe for discharge from this standpoint. We are going to replete her potassium, both oral and IV, and recheck. In the meantime we can treat her for headache and she is going to try some p.o. 05/14/20 15:04 Free Text/Narrative Re-Assessment/Exam: Repeat potassium 4. Vitals and breathing remained stable. Safe for discharge. 05/14/20 17:49 Departure - Departure Time of Disposition: 17:49 Disposition: Home, Self-Care 01 Clinical Impression: Viral syndrome - Discharge Information *PRESCRIPTION DRUG MONITORING PROGRAM REVIEWED*: No *COPY OF PRESCRIPTION DRUG MONITORING REPORT IN PATIENT KITA: No Referrals: Estella Mack MD [Primary Care Provider] - Forms: ED Department Discharge Additional Instructions: We suspect that you had an adverse reaction to the neb treatment. Since you do not have a history of COPD or asthma we suggest that you avoid these treatments. He had a work-up of your pulmonary symptoms in the urgent care which were unrevealing. Please continue to follow your symptoms at home and follow-up with a primary doctor. We agree that your symptoms are concerning for Covid, so please isolate till this test returns. Thank you for letting us care for you today. Sepsis Event Note (ED) - Evaluation Sepsis Screening Result: No Definite Risk - Focused Exam Vital Signs: Vital Signs Temp Pulse Resp BP Pulse Ox 05/14/20 16:24 15 118/70 98 05/14/20 15:24 72 15 126/70 97 05/14/20 12:31 36.1 C 16 135/74 100 05/14/20 12:30 36.1 C 16 135/74 100
== END 2020-05-14 18:57 | disposition home or self-care (01) ==
LOC: JP.ED 12:14
DX: B34.9 Viral infection, unspecified (principal); I10 Essential (primary) hypertension; E78.00 Pure hypercholesterolemia, unspecified; I25.2 Old myocardial infarction; E03.9 Hypothyroidism, unspecified; Z88.1 Allergy status to other antibiotic agents; Z88.5 Allergy status to narcotic agent; Z79.899 Other long term (current) drug therapy; Z79.82 Long term (current) use of aspirin
CPT/HCPCS: 36415; 80048; 84132; 96365; 96366; 99284-25; A9270-GY; J1642; J3480; J7120

== ENCOUNTER 2020-10-11 19:06 | Emergency (ER) | payer BC ==
--- NOTE | 2020-10-11 19:49 | EDM.PDOC ---
ED HPI GENERAL MEDICAL PROBLEM - General Chief Complaint: Respiratory Problem Stated Complaint: HURTS TO TAKE DEEP BREATHS Time Seen by Provider: 10/11/20 19:49 Source of Information: Reports: Patient History Limitations: Reports: No Limitations - History of Present Illness INITIAL COMMENTS - FREE TEXT/NARRATIVE: Patient states that she started having increasing difficulty taking deep breaths/pain with deep inspiration or forced expiration after a big breath per her description. she states its been increasing in nature throughout the day. + cough/nonproductive. otherwise denies any F/C, N/V, dizzy/light headedness, no sick contacts. She recieved her iron infusion as planned last week PMH--anemia-iron deficiency, breast cancer (16 years ago), CAD/[place] stents x 1, HTN, HLP, hx gastric bypass ([id number]), anxiety, IBS, chronic pain Meds--levothyroxin, lysine, atorovostatin, oxycodone, dyazide, asa, ativan, hydroxazine Allergies--listed in EMR (amox, augmentin, codiene) she only states neulasta Tob--former EtOH--rare Drugs--denies - Related Data Allergies Allergy/AdvReac Type Severity Reaction Status Date / Time amoxicillin [From Augmentin] Allergy Cannot Verified 08/22/19 09:43 Remember clavulanic acid Allergy Cannot Verified 08/22/19 09:43 [From Augmentin] Remember codeine AdvReac Nausea Verified 08/22/19 09:43 Home Meds: Home Meds Levothyroxine Sodium [Synthroid] 137 mcg PO ACBREAKFAST 08/22/19 [History] Lysine 1 tab PO DAILY 08/22/19 [History] atorvaSTATin [Lipitor] 40 mg PO DAILY 08/22/19 [History] Triamterene/Hydrochlorothiazid [Dyazide 37.5-25 Capsule] 1 each PO DAILY #30 capsule 08/23/19 [Rx] Aspirin 81 mg PO DAILY 05/14/20 [History] LORazepam [Ativan] 1 tab PO Q4H PRN 10/11/20 [History] hydrOXYzine pamoate [Hydroxyzine Pamoate] 25 mg PO Q4HR PRN 10/11/20 [History] oxyCODONE 1 tab PO Q4H PRN 10/11/20 [History] Past Medical History HEENT History: Reports: Impaired Vision Cardiovascular History: Reports: High Cholesterol, Hypertension, [place] [employer] History: Reports: Musculoskeletal History: Reports: Fracture Endocrine/Metabolic History: Reports: Hypothyroidism Hematologic History: Reports: Iron Deficiency Oncologic (Cancer) History: Reports: Breast - Infectious Disease History Infectious Disease History: Reports: Chicken Pox - Past Surgical History Cardiovascular Surgical History: Reports: Coronary Artery Stent GI Surgical History: Reports: Bariatric Procedure, Cholecystectomy Female Surgical History: Reports: Breast Reconstruction Oncologic Surgical History: Reports: Mastectomy Social & Family History - Tobacco Use Tobacco Use Status *Q: Former Tobacco User Used Tobacco, but Quit: Yes Month/Year Tobacco Last Used: 07/1995 - Caffeine Use Caffeine Use: Reports: Coffee - Recreational Drug Use Recreational Drug Use: No ED ROS GENERAL - Review of Systems Review Of Systems: See Below Constitutional: Reports: No Symptoms HEENT: Reports: No Symptoms Respiratory: Reports: Shortness of Breath, Pleuritic Chest Pain, Cough Cardiovascular: Reports: No Symptoms Endocrine: Reports: No Symptoms GI/Abdominal: Reports: Abdominal Pain (left upper quad/at line of rib-cage) : Reports: No Symptoms Musculoskeletal: Reports: No Symptoms Skin: Reports: No Symptoms Neurological: Reports: No Symptoms Psychiatric: Reports: No Symptoms Hematologic/Lymphatic: Reports: No Symptoms Immunologic: Reports: No Symptoms ED EXAM, GENERAL - Physical Exam Exam: See Below Exam Limited By: No Limitations General Appearance: Alert, WD/WN, No Apparent Distress Eye Exam: Bilateral Eye: EOMI, Normal Inspection, PERRL Ears: Normal External Exam Nose: Normal Inspection, Normal Mucosa Throat/Mouth: Normal Inspection, Normal Lips, Normal Oropharynx, Normal Voice, No Airway Compromise Head: Atraumatic, Normocephalic Neck: Normal Inspection, Supple, Non-Tender, Full Range of Motion. No: Carotid Bruit, Lymphadenopathy (R), Lymphadenopathy (L) Respiratory/Chest: No Respiratory Distress, Lungs Clear, Normal Breath Sounds Cardiovascular: Normal Peripheral Pulses, Regular Rate, Rhythm, No Edema, No Murmur Peripheral Pulses: 2+: Radial (L), Radial (R) GI/Abdominal: Normal Bowel Sounds, Soft, No Distention, Tender (left upper quadrant at level of rib cage) (Female) Exam: Deferred Rectal (Female) Exam: Deferred Back Exam: Normal Inspection Extremities: Normal Inspection, Normal Range of Motion, No Pedal Edema, Normal Capillary Refill Neurological: Alert, Oriented, CN II-XII Intact, Normal Cognition, No Motor/Sensory Deficits Psychiatric: Normal Affect, Normal Mood Skin Exam: Warm, Dry, Intact, Normal Color #1 Interpretation EKG Date: 10/11/20 Time: 20:38 (read at 2039) Rhythm: NSR Rate (Beats/Min): 60 [place]: Normal P-Wave: Present (MD-163) QRS: Normal (QRS-102) ST-T: Normal QT: Normal (QT/QTc-433/433) EKG Interpretation Comments: normal EKG, no STEMI noted Course - Vital Signs Text/Narrative:: 2203--essentially normal labs/rad; chest film preliminary reading no acute process--final radiology reading pending. labs noted for mild elevation of AST- 44, negative trop<0.017 and d-dimer-353. at this time will d/c home with PCM follow up in the next 3-5 days if continued concerns. verbalized understanding/agreement with plan of care Last Recorded V/S: Last Vital Signs Temp 97.9 F 10/11/20 19:18 Pulse 76 10/11/20 19:18 Resp 16 10/11/20 19:18 BP 123/71 10/11/20 21:43 Pulse Ox 95 10/11/20 19:18 - Orders/Labs/Meds Orders: Active Orders 24 hr Category Date Time Status EKG Documentation Completion [RC] ASDIRECTED Care 10/11/20 20:23 Active Pulse Oximetry [RC] CONTINUOUS Care 10/11/20 20:22 Active Chest 2V [CR] Urgent Exams 10/11/20 20:22 Taken EKG 12 Lead [EK] Urgent Ther 10/11/20 20:22 Ordered Labs: Laboratory Tests 10/11/20 10/11/20 10/11/20 Range/Units 20:35 20:35 20:35 WBC 6.5 (4.5-11.0) K/uL RBC 4.43 (3.30-5.50) M/uL Hgb 12.9 (12.0-15.0) g/dL Hct 39.4 (36.0-48.0) % MCV 89 (80-98) fL MCH 29 (27-31) pg MCHC 33 (32-36) % Plt Count 326 (150-400) K/uL Neut % (Auto) 55 (36-66) % Lymph % (Auto) 28 (24-44) % Grand % (Auto) 11 H (2-6) % Eos % (Auto) 5 H (2-4) % Baso % (Auto) 1 (0-1) % D-Dimer, Quantitative 353.74 (0.0-500.0) ng/mL Sodium 144 (140-148) mmol/L Potassium 3.7 (3.6-5.2) mmol/L Chloride 105 (100-108) mmol/L Carbon Dioxide 29 (21-32) mmol/L Anion Gap 10.0 (5.0-14.0) mmol/L BUN 14 (7-18) mg/dL Creatinine 0.8 (0.6-1.0) mg/dL Est Cr Clr Drug Dosing 64.01 mL/min Estimated GFR (MDRD) > 60 (>60) Glucose 104 (74-106) mg/dL Calcium 8.7 (8.5-10.1) mg/dL Magnesium 1.8 (1.8-2.4) mg/dL Total Bilirubin 0.2 (0.2-1.0) mg/dL AST 44 H (15-37) U/L ALT 69 (12-78) U/L Alkaline Phosphatase 82 (46-116) U/L Troponin I < 0.017 (0.000-0.056) ng/mL Total Protein 6.1 L (6.4-8.2) g/dL Albumin 3.4 (3.4-5.0) g/dL Globulin 2.7 (2.3-3.5) g/dL Albumin/Globulin Ratio 1.3 (1.2-2.2) Influenza Type A RNA (NEGATIVE) RSV RNA (INAAT) (NEGATIVE) Influenza Type B RNA (NEGATIVE) SARS-CoV-2 RNA (MARCIO) (NEGATIVE) 10/11/20 Range/Units 21:02 WBC (4.5-11.0) K/uL RBC (3.30-5.50) M/uL Hgb (12.0-15.0) g/dL Hct (36.0-48.0) % MCV (80-98) fL MCH (27-31) pg MCHC (32-36) % Plt Count (150-400) K/uL Neut % (Auto) (36-66) % Lymph % (Auto) (24-44) % Grand % (Auto) (2-6) % Eos % (Auto) (2-4) % Baso % (Auto) (0-1) % D-Dimer, Quantitative (0.0-500.0) ng/mL Sodium (140-148) mmol/L Potassium (3.6-5.2) mmol/L Chloride (100-108) mmol/L Carbon Dioxide (21-32) mmol/L Anion Gap (5.0-14.0) mmol/L BUN (7-18) mg/dL Creatinine (0.6-1.0) mg/dL Est Cr Clr Drug Dosing mL/min Estimated GFR (MDRD) (>60) Glucose (74-106) mg/dL Calcium (8.5-10.1) mg/dL Magnesium (1.8-2.4) mg/dL Total Bilirubin (0.2-1.0) mg/dL AST (15-37) U/L ALT (12-78) U/L Alkaline Phosphatase (46-116) U/L Troponin I (0.000-0.056) ng/mL Total Protein (6.4-8.2) g/dL Albumin (3.4-5.0) g/dL Globulin (2.3-3.5) g/dL Albumin/Globulin Ratio (1.2-2.2) Influenza Type A RNA Negative (NEGATIVE) RSV RNA (INAAT) Negative (NEGATIVE) Influenza Type B RNA Negative (NEGATIVE) SARS-CoV-2 RNA (MARCIO) Negative (NEGATIVE) - Radiology Interpretation Free Text/Narrative:: Preliminary reading chest 1V--no acute process, final radiology reading pending Departure - Departure Time of Disposition: 22:06 Disposition: Home, Self-Care 01 Condition: Good Clinical Impression: Shortness of breath at rest - Discharge Information *PRESCRIPTION DRUG MONITORING PROGRAM REVIEWED*: Not Applicable *COPY OF PRESCRIPTION DRUG MONITORING REPORT IN PATIENT KITA: Not Applicable Instructions: Shortness of Breath, Adult, [id number] Referrals: PCP,None [Primary Care Provider] - Forms: ED Department Discharge Additional Instructions: continue your home medications as prescribed by your family doctor schedule an ER follow up in the next 3-5 days if continued concerns or return to the ER if worsening symptoms Sepsis Event Note (ED) - Evaluation Sepsis Screening Result: No Definite Risk - Focused Exam Vital Signs: Vital Signs Temp Pulse Resp BP Pulse Ox 10/11/20 21:43 123/71 10/11/20 21:13 116/68 10/11/20 20:43 133/77 10/11/20 19:18 97.9 F 76 16 135/77 95 - My Orders Last 24 Hours: My Active Orders 10/11/20 20:22 Pulse Oximetry [RC] CONTINUOUS Chest 2V [CR] Urgent EKG 12 Lead [EK] Urgent 10/11/20 20:23 EKG Documentation Completion [RC] ASDIRECTED - Assessment/Plan Last 24 Hours: My Active Orders 10/11/20 20:22 Pulse Oximetry [RC] CONTINUOUS Chest 2V [CR] Urgent EKG 12 Lead [EK] Urgent 10/11/20 20:23 EKG Documentation Completion [RC] ASDIRECTED
[2020-10-11 21:26] LABS: CORONAVIRUS COVID-19 NAA NEGATIVE (NEGATIVE)
--- NOTE | 2020-10-12 09:24 | CR ---
CHEST: 2 view CLINICAL HISTORY:SOB COMPARISON:May 2020 FINDINGS: The heart size, pulmonary vascularity and hilar structures are normal. No infiltrate effusion or pneumothorax is seen. There is a right jugular O[place]nh[place]-e-Biow catheter IMPRESSION: No acute cardiopulmonary process.
== END 2020-10-11 22:22 | disposition home or self-care (01) ==
LOC: JP.ED 19:06
DX: R06.02 Shortness of breath (principal); R07.81 Pleurodynia; R05 Cough; R10.12 Left upper quadrant pain; E78.00 Pure hypercholesterolemia, unspecified; I10 Essential (primary) hypertension; I25.2 Old myocardial infarction; E03.9 Hypothyroidism, unspecified; Z87.891 Personal history of nicotine dependence; Z88.1 Allergy status to other antibiotic agents; Z88.5 Allergy status to narcotic agent; Z88.0 Allergy status to penicillin; Z79.82 Long term (current) use of aspirin; Z79.899 Other long term (current) drug therapy
CPT/HCPCS: 0241U; 36415; 71046; 80053; 83735; 84484; 85025; 85379; 93005; 99285

== ENCOUNTER 2020-10-31 18:12 | Emergency (ER) | payer BC ==
[2020-10-31] MEDS ORDERED: EPINEPHrine 1 MG/ML SDV IM ONE (18:25)
[2020-10-31] MEDS ORDERED: diphenhydrAMINE 50 MG/ML SDV IM ONE (18:25)
[2020-10-31] MEDS ORDERED: methylPREDNISolone Sodium Succinate 125 MG/2 ML SDV IV ONE (18:25)
--- NOTE | 2020-10-31 18:31 | EDM.PDOC ---
ED HPI GENERAL MEDICAL PROBLEM - General Stated Complaint: POSSIBLE ALLERGIC REACTION Time Seen by Provider: 10/31/20 18:23 Source of Information: Reports: Patient, RN Notes Reviewed History Limitations: Reports: No Limitations - History of Present Illness INITIAL COMMENTS - FREE TEXT/NARRATIVE: 60-year-old female presents emergency department a complaint of difficulty swallowing and hard to breathe, she is recently started on the medication myrbetryq for urinary symptoms, states she has had a total of 4 doses just prior to presentation she started the onset of symptoms - Related Data Allergies Allergy/AdvReac Type Severity Reaction Status Date / Time amoxicillin [From Augmentin] Allergy Cannot Verified 10/31/20 18:35 Remember clavulanic acid Allergy Cannot Verified 10/31/20 18:35 [From Augmentin] Remember mirabegron [From Myrbetriq] Allergy Swollen Verified 10/31/20 18:35 Tongue codeine AdvReac Nausea Verified 10/31/20 18:35 Home Meds: Home Meds Levothyroxine Sodium [Synthroid] 137 mcg PO ACBREAKFAST 08/22/19 [History] Lysine 1 tab PO DAILY 08/22/19 [History] atorvaSTATin [Lipitor] 40 mg PO DAILY 08/22/19 [History] Triamterene/Hydrochlorothiazid [Dyazide 37.5-25 Capsule] 1 each PO DAILY #30 capsule 08/23/19 [Rx] Aspirin 81 mg PO DAILY 05/14/20 [History] Mirabegron [Myrbetriq] 1 tab PO DAILY 10/31/20 [History] estradioL [Estradiol] 1 tab PO DAILY 10/31/20 [History] Past Medical History HEENT History: Reports: Impaired Vision Cardiovascular History: Reports: CAD, High Cholesterol, Hypertension, [place] [employer]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: Musculoskeletal History: Reports: Fracture Endocrine/Metabolic History: Reports: Hypothyroidism Hematologic History: Reports: Iron Deficiency Oncologic (Cancer) History: Reports: Breast - Infectious Disease History Infectious Disease History: Reports: Chicken Pox - Past Surgical History Cardiovascular Surgical History: Reports: Coronary Artery Stent GI Surgical History: Reports: Bariatric Procedure, Cholecystectomy Female Surgical History: Reports: Breast Reconstruction Oncologic Surgical History: Reports: Mastectomy Social & Family History - Caffeine Use Caffeine Use: Reports: Coffee ED ROS GENERAL - Review of Systems Review Of Systems: See Below Constitutional: Reports: No Symptoms HEENT: Reports: Throat Pain, Throat Swelling Respiratory: Reports: Shortness of Breath Cardiovascular: Reports: Dyspnea on Exertion GI/Abdominal: Reports: No Symptoms ED EXAM, GENERAL - Physical Exam Exam: See Below Exam Limited By: No Limitations General Appearance: Alert, Moderate Distress Throat/Mouth: Normal Inspection, Normal Lips, Normal Teeth, Normal Gums, Normal Oropharynx, Normal Voice, No Airway Compromise Head: Atraumatic, Normocephalic Neck: Normal Inspection, Supple, Non-Tender, Full Range of Motion Respiratory/Chest: No Respiratory Distress, Lungs Clear, Normal Breath Sounds, No Accessory Muscle Use, Chest Non-Tender Cardiovascular: Regular Rate, Rhythm, No Murmur GI/Abdominal: Soft, Non-Tender Course - Vital Signs Last Recorded V/S: Last Vital Signs Temp 96.8 F L 10/31/20 18:47 Pulse 77 10/31/20 18:47 Resp 16 10/31/20 18:47 BP 163/92 H 10/31/20 18:47 Pulse Ox 96 10/31/20 18:47 - Orders/Labs/Meds Meds: Medications Discontinued Medications Generic Name Dose Route Start Last Admin Trade Name Marcioq PRN Reason Stop Dose Admin Diphenhydramine HCl 50 mg 10/31/20 18:25 10/31/20 18:50 Diphenhydramine 50 Mg/Ml Sdv IM 10/31/20 18:26 50 mg ONETIME ONE Administration Epinephrine HCl 0.4 mg 10/31/20 18:25 10/31/20 18:49 Epinephrine 1 Mg/Ml Sdv IM 10/31/20 18:26 0.4 mg ONETIME ONE Administration Methylprednisolone Sodium Succinate 125 mg 10/31/20 18:25 10/31/20 18:51 Methylprednisolone Sodium Succinate 125 Mg/2 Ml Sdv IV 10/31/20 18:26 125 mg ONETIME ONE Administration Departure - Departure Time of Disposition: 20:01 Disposition: Home, Self-Care 01 Condition: Fair Clinical Impression: Allergic reaction to drug Qualifiers: Encounter type: initial encounter Qualified Code(s): T78.40XA - Allergy, unspecified, initial encounter - Discharge Information Instructions: Anaphylactic Reaction, Adult Referrals: Estella Mack MD [Primary Care Provider] - Additional Instructions: Recommend stopping your new medication, please followup with your primary care provider in 3-5 days if not better, please call return to the emergency department with worsening of symptoms. Sepsis Event Note (ED) - Focused Exam Vital Signs: Vital Signs Temp Pulse Resp BP Pulse Ox 10/31/20 18:47 96.8 F L 77 16 163/92 H 96 10/31/20 18:23 96.8 F L 77 16 163/92 H 96 - Assessment/Plan Plan: Assessment Acuity = acute Site and laterality = allergic reaction to drug Etiology = suspicious for myrbetryq Manifestations = none Location of injury = Home Lab values = none Plan Good improvement with combination 24 mg epinephrine subcu, 50 mg Benadryl and 125 mg Solu-Medrol follow-up primary care in the next 3 to 5 days for reevaluation This note was dictated using [employer] voice recognition software please call with any questions on syntax or grammar.
== END 2020-10-31 20:11 | disposition home or self-care (01) ==
LOC: JP.ED 18:12
DX: R13.10 Dysphagia, unspecified (principal); T44.3X5A Adverse effect of other parasympatholytics [anticholinergics and antimuscarinics] and spasmolytics, initial encounter; I25.10 Atherosclerotic heart disease of native coronary artery without angina pectoris; E78.00 Pure hypercholesterolemia, unspecified; I10 Essential (primary) hypertension; I25.2 Old myocardial infarction; E03.9 Hypothyroidism, unspecified; Z88.0 Allergy status to penicillin; Z88.5 Allergy status to narcotic agent; Z79.899 Other long term (current) drug therapy
CPT/HCPCS: 96372; 96374; 99284; J0171; J1200; J2930

== ENCOUNTER 2022-10-24 03:11 | Emergency (ER) | payer BC ==
[2022-10-24 04:09] LABS: ESTIMATED GFR 107 mL/min (>60)
[2022-10-24] MEDS ORDERED: Potassium Chloride 20 MEQ in Premix Bag 1 BAG IV ONE (04:10)
[2022-10-24] MEDS ORDERED: Potassium Chloride 20 MEQ Tab.ER PO ONE (04:11)
[2022-10-24] MEDS ORDERED: Lidocaine/Prilocaine 2.5-2.5% Crm 5 GM Tube TOP ONE (04:29)
== END 2022-10-24 05:57 | disposition home or self-care (01) ==
LOC: JP.ED 03:11
DX: E87.6 Hypokalemia (principal); I25.10 Atherosclerotic heart disease of native coronary artery without angina pectoris; E78.00 Pure hypercholesterolemia, unspecified; I10 Essential (primary) hypertension; I25.2 Old myocardial infarction; E03.9 Hypothyroidism, unspecified; Z88.0 Allergy status to penicillin; Z88.5 Allergy status to narcotic agent; Z88.8 Allergy status to other drugs, medicaments and biological substances; Z79.899 Other long term (current) drug therapy; Z79.82 Long term (current) use of aspirin
CPT/HCPCS: 36415; 80053; 83735; 85025; 96374; 99284; A9270; J3480; 99283

== ENCOUNTER 2022-11-17 16:38 | Inpatient (IN) | payer BC ==
[2022-11-17] MEDS ORDERED: NS with KCl 40mEq 500 ML IV SCH (17:15)
[2022-11-17 17:35] LABS: MEAN CORPUSCULAR HGB CONC 35.9 g/dL (31.6-35.5); MEAN CORPUSCULAR VOLUME 83.5 fL (81.4-99.0); RED BLOOD CELL COUNT 4.67 M/uL (3.77-5.24); WHITE BLOOD CELL COUNT,WBC 11.2 K/uL (3.2-11.0)
[2022-11-17 17:56] LABS: A/G RATIO 1.2 (1.2-2.2); ALANINE AMINOTRANSFERASE,ALT 27 U/L (12-78); ALBUMIN 3.7 g/dL (3.4-5.0); ALKALINE PHOSPHATASE 90 U/L (46-116); ASPARTATE AMNIOTRANSFERASE,AST 28 U/L (15-37); BILIRUBIN TOTAL 0.6 mg/dL (0.2-1.0); BLOOD UREA NITROGEN,BUN 24 mg/dL (7-18); CALCIUM 9.2 mg/dL (8.5-10.1); CARBON DIOXIDE,CO2 35 mmol/L (21-32); CHLORIDE,CL 89 mmol/L (100-108); CREATININE 0.6 mg/dL (0.6-1.0); EST CRCL DRUG DOSING (CG) 81.45 mL/min; ESTIMATED GFR 102 mL/min (>60); GLUCOSE RANDOM 121 mg/dL (74-106); PROTEIN TOTAL,TP 6.9 g/dL (6.4-8.2); SODIUM,NA 131 mmol/L (140-148)
[2022-11-17] MEDS ORDERED: Potassium Chloride 10 MEQ in Premix Bag 1 BAG IV ONE ×5 (17:59→18:00)
[2022-11-17 18:01] LABS: ANION GAP 8.7 mmol/L (5.0-14.0); POTASSIUM,K 1.7 mmol/L (3.6-5.2)
[2022-11-17] MEDS: Potassium Chloride 10 MEQ in Premix Bag 1 BAG IV ONE ×2 (18:15→22:30)
[2022-11-17 18:32] LABS: APPEARANCE,URINE CLEAR (CLEAR); BILIRUBIN,URINE NEGATIVE (NEGATIVE); COLOR,URINE YELLOW (YELLOW); GLUCOSE,URINE NEGATIVE (NEGATIVE); KETONES,URINE NEGATIVE (NEGATIVE); LEUKOCYTE ESTERASE,URINE NEGATIVE (NEGATIVE); NITRITE,URINE NEGATIVE (NEGATIVE); OCCULT BLOOD,URINE NEGATIVE (NEGATIVE); PROTEIN,URINE NEGATIVE (NEGATIVE); UROBILINOGEN,URINE 0.2 EU/dL (0.2-1.0)
[2022-11-17 18:42] LABS: AMORPHOUS SEDIMENT,URINE NOT SEEN; BACTERIA,URINE FEW; EPITHELIAL CELLS,URINE RARE; MUCUS,URINE RARE; RBC,URINE 0-5 (0-5); WBC,URINE 0-5 (0-5)
[2022-11-17] MEDS ORDERED: Morphine 2 MG/ML SYRINGE IVPUSH PRN (19:10)
[2022-11-17] MEDS ORDERED: Ondansetron 4 MG Tab.DIS PO PRN (19:10)
[2022-11-17] MEDS ORDERED: Polyethylene Glycol 3350 Powder 17 GM Packet PO PRN (19:10)
[2022-11-17] MEDS ORDERED: Ondansetron 4 MG/2 ML SDV IV PRN (19:10)
[2022-11-17] MEDS ORDERED: oxyCODONE 5 MG Tab PO PRN (19:10)
[2022-11-17] MEDS ORDERED: Acetaminophen 325 MG Tab PO PRN (19:10)
[2022-11-17] MEDS ORDERED: Magnesium Hydroxide 400 MG/5 ML Susp 30 ML Cup PO PRN (19:10)
[2022-11-17] MEDS ORDERED: Sodium Chloride 0.9% 1,000 ML IV SCH (19:15)
[2022-11-17] MEDS ORDERED: Estradiol 0.5 MG Tab PO PRN (20:33)
[2022-11-17] MEDS: LORazepam 2 MG/ML SDV IVPUSH PRN (23:45)
[2022-11-18 06:39] LABS: HEMOGLOBIN 12.4 g/dL (11.2-15.5); MEAN CORPUSCULAR HEMOGLOBIN 29.8 pg (31.6-35.5); MEAN CORPUSCULAR HGB CONC 35.4 g/dL (31.6-35.5); MEAN CORPUSCULAR VOLUME 84.1 fL (81.4-99.0); RED BLOOD CELL COUNT 4.16 M/uL (3.77-5.24); WHITE BLOOD CELL COUNT,WBC 7.2 K/uL (3.2-11.0)
[2022-11-18 07:00] LABS: A/G RATIO 1.2 (1.2-2.2); ALANINE AMINOTRANSFERASE,ALT 21 U/L (12-78); ALBUMIN 3.2 g/dL (3.4-5.0); ALKALINE PHOSPHATASE 75 U/L (46-116); ASPARTATE AMNIOTRANSFERASE,AST 23 U/L (15-37); BILIRUBIN TOTAL 0.6 mg/dL (0.2-1.0); BLOOD UREA NITROGEN,BUN 15 mg/dL (7-18); CALCIUM 8.5 mg/dL (8.5-10.1); CARBON DIOXIDE,CO2 37 mmol/L (21-32); CHLORIDE,CL 92 mmol/L (100-108); CREATININE 0.6 mg/dL (0.6-1.0); EST CRCL DRUG DOSING (CG) 81.45 mL/min; ESTIMATED GFR 102 mL/min (>60); GLUCOSE RANDOM 100 mg/dL (74-106); MAGNESIUM 1.8 mg/dL (1.8-2.4); PROTEIN TOTAL,TP 5.8 g/dL (6.4-8.2); SODIUM,NA 132 mmol/L (140-148)
[2022-11-18 07:04] LABS: ANION GAP 5.3 mmol/L (5.0-14.0); POTASSIUM,K 2.3 mmol/L (3.6-5.2)
[2022-11-18] MEDS ORDERED: Magnesium Hydroxide 400 MG/5 ML Susp 30 ML Cup PO PRN (07:22)
[2022-11-18] MEDS ORDERED: Levothyroxine 25 MCG Tab PO SCH (07:30)
[2022-11-18] MEDS ORDERED: Levothyroxine 112 MCG Tab PO SCH (07:30)
[2022-11-18] MEDS: Potassium Chloride 20 MEQ Tab.ER PO SCH ×2 (08:05→17:49)
[2022-11-18] MEDS ORDERED: Non-Formulary Medication 1 Each (Lysine [Lysine] 1,000 MG Tablet) PO SCH (09:00)
[2022-11-18] MEDS ORDERED: Aspirin 81 MG Tab.Chew PO SCH (09:00)
[2022-11-18 12:15] LABS: CALCIUM 8.8 mg/dL (8.5-10.1); CREATININE 0.6 mg/dL (0.6-1.0); EST CRCL DRUG DOSING (CG) 81.45 mL/min
[2022-11-18] MEDS ORDERED: SODIUM CHLORIDE 0.9% IV ONE (12:15)
[2022-11-18] MEDS ORDERED: POTASSIUM CHLORIDE IV ONE (12:15)
[2022-11-18 12:24] LABS: ANION GAP 4.9 mmol/L (5.0-14.0); POTASSIUM,K 2.9 mmol/L (3.6-5.2)
[2022-11-18] MEDS ORDERED: Ketorolac 15 MG/ML SDV IVPUSH PRN (12:40)
[2022-11-18] MEDS ORDERED: Potassium Chloride 20 MEQ Tab.ER PO ONE (13:00)
[2022-11-18] MEDS: LORazepam 2 MG/ML SDV IVPUSH PRN (15:28)
[2022-11-18 17:40] LABS: ANION GAP 10.5 mmol/L (5.0-14.0); CALCIUM 9.2 mg/dL (8.5-10.1); CREATININE 0.6 mg/dL (0.6-1.0); EST CRCL DRUG DOSING (CG) 81.45 mL/min; POTASSIUM,K 3.5 mmol/L (3.6-5.2)
[2022-11-18] MEDS ORDERED: atorvaSTATin 20 MG Tab PO SCH (21:00)
[2022-11-18] MEDS ORDERED: Potassium Chloride 20 MEQ Tab.ER PO SCH ×2 (21:00)
== END 2022-11-18 18:40 | disposition home or self-care (01) | DRG 425 ==
LOC: JP.ED 16:38 → JP.ICU 19:10
PROVIDERS: ADMIT Hospitalist; ATTEND Hospitalist
DX: E87.6 Hypokalemia (principal); Z88.5 Allergy status to narcotic agent; H54.7 Unspecified visual loss; I25.10 Atherosclerotic heart disease of native coronary artery without angina pectoris; E78.00 Pure hypercholesterolemia, unspecified; E87.1 Hypo-osmolality and hyponatremia; Z20.822 Contact with and (suspected) exposure to COVID-19; I10 Essential (primary) hypertension; E03.9 Hypothyroidism, unspecified; Z90.49 Acquired absence of other specified parts of digestive tract; Z90.710 Acquired absence of both cervix and uterus; Z88.0 Allergy status to penicillin; Z79.82 Long term (current) use of aspirin; Z79.890 Hormone replacement therapy; Z79.899 Other long term (current) drug therapy; I25.2 Old myocardial infarction; Z95.5 Presence of coronary angioplasty implant and graft; Z87.891 Personal history of nicotine dependence; Z90.12 Acquired absence of left breast and nipple
CPT/HCPCS: 36415; 80048; 80053; 81001; 83735; 85027; 93005; 96365; 96366; 99222; 99239; 99285-25; A9270-GY; J2060; J3480; J3490; U0002

== ENCOUNTER 2023-05-08 06:23 | Day surgery (SDC) | payer BC ==
[2023-05-08] MEDS: Lidocaine/Prilocaine 2.5-2.5% Crm 5 GM Tube TOP ONE (06:51)
[2023-05-08] MEDS ORDERED: Midazolam 1 MG/ML 2 ML SDV ONE (06:57)
[2023-05-08] MEDS ORDERED: Propofol 200 MG/20 ML SDV ONE (06:58)
[2023-05-08] MEDS ORDERED: fentaNYL 50 MCG/ML SDV ONE (06:58)
[2023-05-08] MEDS: Lactated Ringers 1,000 ML IV SCH (07:30)
== END 2023-05-08 09:50 | disposition home or self-care (01) ==
LOC: JP.SDS 06:23
PROVIDERS: ATTEND Family Medicine
DX: D50.9 Iron deficiency anemia, unspecified (principal); K63.89 Other specified diseases of intestine; I25.10 Atherosclerotic heart disease of native coronary artery without angina pectoris; I10 Essential (primary) hypertension; K90.9 Intestinal malabsorption, unspecified; Z98.84 Bariatric surgery status; Z95.5 Presence of coronary angioplasty implant and graft; Z88.5 Allergy status to narcotic agent; Z88.8 Allergy status to other drugs, medicaments and biological substances; Z88.0 Allergy status to penicillin
CPT/HCPCS: 88305; 96523; A9270-GY; J1642; J2250; J2704; J3010; J7120

== ENCOUNTER 2023-06-29 14:04 | Inpatient (IN) | payer BC ==
[2023-06-29] MEDS ORDERED: Acetaminophen 325 MG Tab PO PRN (15:06)
[2023-06-29] MEDS ORDERED: Melatonin 3 MG Tab PO PRN (15:06)
[2023-06-29] MEDS ORDERED: Magnesium Hydroxide 400 MG/5 ML Susp 30 ML Cup PO PRN (15:06)
[2023-06-29] MEDS ORDERED: Ondansetron 4 MG/2 ML SDV IV PRN (15:06)
[2023-06-29] MEDS ORDERED: Ondansetron 4 MG Tab.DIS PO PRN (15:06)
[2023-06-29] MEDS ORDERED: Sodium Chloride 0.9% 1,000 ML IV SCH (15:15)
[2023-06-29] MEDS ORDERED: diphenhydrAMINE 50 MG/ML SDV IVPUSH ONE (15:30)
[2023-06-29] MEDS ORDERED: Dexamethasone 4 MG/ML SDV IVPUSH ONE (15:30)
[2023-06-29 15:45] LABS: BASOPHILS ABSOLUTE AUTO 0.06 K/uL (0.00-0.10); BASOPHILS PERCENT AUTO 0.9 % (0.1-1.3); EOSINOPHILS ABSOLUTE AUTO 0.16 K/uL (0.00-0.40); EOSINOPHILS PERCENT AUTO 2.5 % (0.0-5.4); HEMATOCRIT 31.4 % (34.3-46.0); HEMOGLOBIN 9.8 g/dL (11.2-15.5); IMMATURE GRAN PERCENT AUTO 0.3 % (0.0-0.7); LYMPHOCYTES ABSOLUTE AUTO 1.75 K/uL (0.8-3.3); LYMPHOCYTES PERCENT AUTO 26.8 % (11.4-47.7); MEAN CORPUSCULAR HEMOGLOBIN 23.7 pg (31.6-35.5); MEAN CORPUSCULAR HGB CONC 31.2 g/dL (31.6-35.5); MEAN CORPUSCULAR VOLUME 75.8 fL (81.4-99.0); MONOCYTES ABSOLUTE AUTO 0.62 K/uL (0.20-0.90); MONOCYTES PERCENT AUTO 9.5 % (3.3-12.6); NEUTROPHILS ABSOLUTE AUTO 3.92 K/uL (1.0-7.6); PLATELET COUNT,PLT 326 K/uL (130-375); RED BLOOD CELL COUNT 4.14 M/uL (3.77-5.24); WHITE BLOOD CELL COUNT,WBC 6.5 K/uL (3.2-11.0)
[2023-06-29 15:46] LABS: IMMATURE GRAN ABSOLUTE AUTO 0.02 K/uL (0.00-0.23)
[2023-06-29 16:00] LABS: CALCIUM 8.2 mg/dL (8.5-10.1); CREATININE 0.7 mg/dL (0.6-1.0); EST CRCL DRUG DOSING (CG) 69.81 mL/min; POTASSIUM,K 3.6 mmol/L (3.6-5.2)
[2023-06-29 16:04] LABS: ANION GAP 8.6 mmol/L (5.0-14.0)
[2023-06-29 16:23] LABS: IRON,FE 16 ug/dL (50-170); PERCENT FE SATURATION 4 % (20-55); TOTAL IRON BINDING CAPACITY 373 ug/dl (250-450)
[2023-06-29] MEDS ORDERED: Iron Sucrose Complex 300 MG in Sodium Chloride 0.9% 250 ML IV ONE (16:30)
[2023-06-29] MEDS ORDERED: atorvaSTATin 20 MG Tab PO SCH (17:00)
[2023-06-29] MEDS ORDERED: Vitamin B6-pyridOXINE 50 MG Tab PO SCH (17:00)
[2023-06-29] MEDS ORDERED: Cholecalciferol (Vitamin D3) 25 MCG Tab PO SCH (17:00)
[2023-06-29] MEDS ORDERED: Calcium Carbonate/Vitamin D3 1500 MG-400 Units Tab PO SCH (17:00)
[2023-06-29] MEDS: oxyCODONE 5 MG Tab PO PRN (17:26)
[2023-06-29 18:20] LABS: CORONAVIRUS COVID-19 NAA NEGATIVE (NEGATIVE); INFLUENZA A NAA NEGATIVE (NEGATIVE); INFLUENZA B NAA NEGATIVE (NEGATIVE); RESPIRATORY SYNCYTIAL VIR NAA NEGATIVE (NEGATIVE)
[2023-06-29] MEDS: hydrOXYzine HCl 25 MG Tab PO PRN (19:17)
[2023-06-29] MEDS: Ketorolac 15 MG/ML SDV IVPUSH PRN (21:23)
[2023-06-29] MEDS: Sennosides 8.6 MG Tab PO SCH (21:24)
[2023-06-29] MEDS: Calcium Carbonate/Vitamin D3 1500 MG-400 Units Tab PO SCH (21:25)
[2023-06-29] MEDS: atorvaSTATin 20 MG Tab PO SCH (21:25)
[2023-06-29] MEDS: Vitamin B6-pyridOXINE 50 MG Tab PO SCH (21:25)
[2023-06-29] MEDS: Cholecalciferol (Vitamin D3) 25 MCG Tab PO SCH (21:26)
[2023-06-30] MEDS: oxyCODONE 5 MG Tab PO PRN ×4 (02:16→21:18)
[2023-06-30] MEDS: Ketorolac 15 MG/ML SDV IVPUSH PRN ×3 (05:15→18:44)
[2023-06-30] MEDS: Aspirin 81 MG Tab.Chew PO SCH (07:24)
[2023-06-30] MEDS: Zinc Sulfate 220 MG Cap PO SCH (07:24)
[2023-06-30] MEDS: Levothyroxine 112 MCG Tab PO SCH (07:24)
[2023-06-30] MEDS: hydrOXYzine HCl 25 MG Tab PO PRN ×3 (08:41→21:18)
[2023-06-30] MEDS: Sennosides 8.6 MG Tab PO SCH ×2 (08:41→21:19)
[2023-06-30] MEDS: Dexamethasone 4 MG/ML SDV IVPUSH PRN ×2 (11:38→21:25)
[2023-06-30] MEDS: Calcium Carbonate 500 MG Tab.Chew PO PRN (17:31)
[2023-06-30] MEDS: valACYclovir 1,000 MG Tab PO PRN (17:48)
[2023-06-30] MEDS: diphenhydrAMINE 50 MG/ML SDV IVPUSH PRN ×2 (18:45→23:11)
[2023-06-30] MEDS: atorvaSTATin 20 MG Tab PO SCH (21:17)
[2023-06-30] MEDS: Cholecalciferol (Vitamin D3) 25 MCG Tab PO SCH (21:20)
[2023-06-30] MEDS: Vitamin B6-pyridOXINE 50 MG Tab PO SCH (21:21)
[2023-06-30] MEDS: Calcium Carbonate/Vitamin D3 1500 MG-400 Units Tab PO SCH (21:21)
[2023-07-01] MEDS: Ketorolac 15 MG/ML SDV IVPUSH PRN ×4 (01:33→20:43)
[2023-07-01] MEDS: oxyCODONE 5 MG Tab PO PRN ×3 (03:18→17:05)
[2023-07-01] MEDS: hydrOXYzine HCl 25 MG Tab PO PRN ×3 (06:12→17:05)
[2023-07-01] MEDS: Calcium Carbonate 500 MG Tab.Chew PO PRN ×2 (06:49→11:07)
[2023-07-01] MEDS: diphenhydrAMINE 50 MG/ML SDV IVPUSH PRN ×3 (07:46→20:43)
[2023-07-01] MEDS: Sennosides 8.6 MG Tab PO SCH ×3 (07:51→20:45)
[2023-07-01] MEDS: Levothyroxine 112 MCG Tab PO SCH (07:52)
[2023-07-01] MEDS: Zinc Sulfate 220 MG Cap PO SCH (07:52)
[2023-07-01] MEDS: Aspirin 81 MG Tab.Chew PO SCH (07:52)
[2023-07-01] MEDS: valACYclovir 1,000 MG Tab PO PRN (08:14)
[2023-07-01] MEDS: Dexamethasone 4 MG/ML SDV IVPUSH PRN ×2 (11:52→20:57)
[2023-07-01] MEDS: Sennosides/Docusate Sodium 50-8.6 MG Tab PO PRN ×2 (11:52→20:43)
[2023-07-01] MEDS: atorvaSTATin 20 MG Tab PO SCH (20:44)
[2023-07-01] MEDS: Calcium Carbonate/Vitamin D3 1500 MG-400 Units Tab PO SCH (20:45)
[2023-07-01] MEDS: Vitamin B6-pyridOXINE 50 MG Tab PO SCH (20:45)
[2023-07-01] MEDS: Cholecalciferol (Vitamin D3) 25 MCG Tab PO SCH (20:46)
[2023-07-02] MEDS: hydrOXYzine HCl 25 MG Tab PO PRN ×2 (04:00→10:54)
[2023-07-02] MEDS: Ketorolac 15 MG/ML SDV IVPUSH PRN ×2 (04:00→10:24)
[2023-07-02] MEDS: Aspirin 81 MG Tab.Chew PO SCH (07:35)
[2023-07-02] MEDS: Zinc Sulfate 220 MG Cap PO SCH (07:35)
[2023-07-02] MEDS: Levothyroxine 112 MCG Tab PO SCH (07:35)
[2023-07-02] MEDS: Sennosides 8.6 MG Tab PO SCH (08:21)
[2023-07-02] MEDS: Sennosides/Docusate Sodium 50-8.6 MG Tab PO PRN (08:21)
[2023-07-02] MEDS: Calcium Carbonate 500 MG Tab.Chew PO PRN (09:22)
[2023-07-02 10:56] LABS: HEMATOCRIT 31.5 % (34.3-46.0); HEMOGLOBIN 9.6 g/dL (11.2-15.5); MEAN CORPUSCULAR HEMOGLOBIN 23.4 pg (31.6-35.5); MEAN CORPUSCULAR HGB CONC 30.5 g/dL (31.6-35.5); MEAN CORPUSCULAR VOLUME 76.6 fL (81.4-99.0); RED BLOOD CELL COUNT 4.11 M/uL (3.77-5.24); WHITE BLOOD CELL COUNT,WBC 12.6 K/uL (3.2-11.0)
[2023-07-02 11:22] LABS: IRON,FE 47 ug/dL (50-170); PERCENT FE SATURATION 14 % (20-55); TOTAL IRON BINDING CAPACITY 335 ug/dl (250-450)
== END 2023-07-02 11:40 | disposition home or self-care (01) | DRG 663 ==
LOC: JP.ICU 14:04 → OBSVTOIN 07-01 15:45
PROVIDERS: ADMIT Internal Medicine; ATTEND Hospitalist
DX: D50.8 Other iron deficiency anemias (principal); I25.10 Atherosclerotic heart disease of native coronary artery without angina pectoris; I10 Essential (primary) hypertension; E03.9 Hypothyroidism, unspecified; F41.9 Anxiety disorder, unspecified; Z11.52 Encounter for screening for COVID-19; Z88.1 Allergy status to other antibiotic agents; Z88.5 Allergy status to narcotic agent; Z91.048 Other nonmedicinal substance allergy status; Z79.82 Long term (current) use of aspirin; Z79.899 Other long term (current) drug therapy; I25.2 Old myocardial infarction; Z95.5 Presence of coronary angioplasty implant and graft; Z87.81 Personal history of (healed) traumatic fracture; Z90.89 Acquired absence of other organs; Z90.49 Acquired absence of other specified parts of digestive tract; Z90.710 Acquired absence of both cervix and uterus; Z98.890 Other specified postprocedural states; Z90.10 Acquired absence of unspecified breast and nipple; Z87.891 Personal history of nicotine dependence; Z98.84 Bariatric surgery status; Z85.3 Personal history of malignant neoplasm of breast
CPT/HCPCS: 0241U; 36415; 80048; 82728; 83550; 85025; 85027; 96365; 96366; 96375; 96376; A9270-GY; G0378; G0379; J1100; J1200; J1642; J1756; J1885; J7030; J7050

== ENCOUNTER 2024-08-05 14:10 | Inpatient (IN) | payer BC ==
[2024-08-05] MEDS ORDERED: Magnesium Hydroxide 400 MG/5 ML Susp 30 ML Cup PO PRN (15:06)
[2024-08-05] MEDS ORDERED: Acetaminophen 325 MG Tab PO PRN (15:06)
[2024-08-05] MEDS ORDERED: Melatonin 3 MG Tab PO PRN (15:06)
[2024-08-05] MEDS ORDERED: Ondansetron 4 MG Tab.DIS PO PRN (15:06)
[2024-08-05] MEDS ORDERED: Ondansetron 4 MG/2 ML SDV IV PRN (15:06)
[2024-08-05] MEDS ORDERED: Dexamethasone 4 MG/ML SDV IVPUSH PRN (15:10)
[2024-08-05 16:07] LABS: BASOPHILS ABSOLUTE AUTO 0.03 K/uL (0.00-0.10); BASOPHILS PERCENT AUTO 0.5 % (0.1-1.3); EOSINOPHILS ABSOLUTE AUTO 0.14 K/uL (0.00-0.40); EOSINOPHILS PERCENT AUTO 2.5 % (0.0-5.4); HEMATOCRIT 19.2 % (34.3-46.0); IMMATURE GRAN PERCENT AUTO 0.2 % (0.0-0.7); LYMPHOCYTES ABSOLUTE AUTO 1.64 K/uL (0.8-3.3); LYMPHOCYTES PERCENT AUTO 29.2 % (11.4-47.7); MEAN CORPUSCULAR HEMOGLOBIN 25.8 pg (31.6-35.5); MEAN CORPUSCULAR HGB CONC 31.3 g/dL (31.6-35.5); MEAN CORPUSCULAR VOLUME 82.4 fL (81.4-99.0); MONOCYTES ABSOLUTE AUTO 0.56 K/uL (0.20-0.90); NEUTROPHILS ABSOLUTE AUTO 3.24 K/uL (1.0-7.6); NEUTROPHILS PERCENT AUTO 57.6 % (40.0-78.1); PLATELET COUNT,PLT 302 K/uL (130-375); RED BLOOD CELL COUNT 2.33 M/uL (3.77-5.24); WHITE BLOOD CELL COUNT,WBC 5.6 K/uL (3.2-11.0)
[2024-08-05] MEDS: diphenhydrAMINE 50 MG/ML SDV IVPUSH ONE (16:22)
[2024-08-05] MEDS: Sodium Chloride 0.9% 1,000 ML IV SCH (16:26)
[2024-08-05 16:30] LABS: A/G RATIO 1.2 (1.2-2.2); ALANINE AMINOTRANSFERASE,ALT 30 U/L (12-78); ALBUMIN 3.1 g/dL (3.4-5.0); ALKALINE PHOSPHATASE 72 U/L (46-116); ASPARTATE AMNIOTRANSFERASE,AST 25 U/L (15-37); BILIRUBIN TOTAL 0.2 mg/dL (0.2-1.0); BLOOD UREA NITROGEN,BUN 19 mg/dL (7-18); CALCIUM 8.2 mg/dL (8.5-10.1); CARBON DIOXIDE,CO2 26 mmol/L (21-32); CHLORIDE,CL 109 mmol/L (100-108); CREATININE 0.7 mg/dL (0.6-1.0); EST CRCL DRUG DOSING (CG) 66.55 mL/min; ESTIMATED GFR 97 mL/min (>60); GLUCOSE RANDOM 125 mg/dL (74-106); MAGNESIUM 1.9 mg/dL (1.8-2.4); POTASSIUM,K 3.9 mmol/L (3.6-5.2); PROTEIN TOTAL,TP 5.6 g/dL (6.4-8.2); SODIUM,NA 143 mmol/L (140-148)
[2024-08-05] MEDS ORDERED: Dexamethasone Sodium Phos/PF 10 MG/ML VIAL IJ ONE (16:30)
[2024-08-05 16:31] LABS: ANION GAP 11.9 mmol/L (5.0-14.0); IMMATURE GRAN ABSOLUTE AUTO 0.01 K/uL (0.00-0.23)
[2024-08-05 16:37] LABS: IRON,FE 9 ug/dL (50-170); PERCENT FE SATURATION 3 % (20-55); TOTAL IRON BINDING CAPACITY 360 ug/dl (250-450)
[2024-08-05] MEDS ORDERED: Iron Sucrose Complex 300 MG in Sodium Chloride 0.9% 250 ML IV ONE (17:00)
[2024-08-05] MEDS: hydrOXYzine HCl 25 MG Tab PO PRN (17:17)
[2024-08-05] MEDS: Sennosides/Docusate Sodium 50-8.6 MG Tab PO SCH (21:50)
[2024-08-05] MEDS: atorvaSTATin 20 MG Tab PO SCH (21:51)
[2024-08-05] MEDS: Ketorolac 15 MG/ML SDV IVPUSH PRN (22:43)
[2024-08-06] MEDS: Losartan 25 MG Tab PO SCH (03:27)
[2024-08-06] MEDS: Aspirin 81 MG Tab.Chew PO SCH (07:40)
[2024-08-06] MEDS: Levothyroxine 50 MCG Tab PO SCH (07:40)
[2024-08-06] MEDS: diphenhydrAMINE 50 MG/ML SDV IVPUSH ONE (08:51)
[2024-08-06] MEDS: Dexamethasone Sodium Phos/PF 10 MG/ML VIAL IJ ONE (09:35)
[2024-08-06] MEDS: oxyCODONE 5 MG Tab PO PRN (09:58)
[2024-08-06] MEDS: Iron Sucrose Complex 300 MG in Sodium Chloride 0.9% 250 ML IV ONE (10:36)
[2024-08-07 06:04] LABS: HEMATOCRIT 24.2 % (34.3-46.0); HEMOGLOBIN 7.8 g/dL (11.2-15.5); MEAN CORPUSCULAR HEMOGLOBIN 26.9 pg (31.6-35.5); MEAN CORPUSCULAR HGB CONC 32.2 g/dL (31.6-35.5); MEAN CORPUSCULAR VOLUME 83.4 fL (81.4-99.0); RED BLOOD CELL COUNT 2.9 M/uL (3.77-5.24); WHITE BLOOD CELL COUNT,WBC 11.2 K/uL (3.2-11.0)
[2024-08-07 06:16] LABS: CALCIUM 8.1 mg/dL (8.5-10.1); CREATININE 0.7 mg/dL (0.6-1.0); EST CRCL DRUG DOSING (CG) 66.55 mL/min; POTASSIUM,K 3.8 mmol/L (3.6-5.2)
[2024-08-07 06:21] LABS: ANION GAP 11.8 mmol/L (5.0-14.0)
[2024-08-07] MEDS: Sennosides/Docusate Sodium 50-8.6 MG Tab PO ONE (10:02)
[2024-08-07] MEDS: diphenhydrAMINE 50 MG/ML SDV IVPUSH PRN (21:35)
[2024-08-07] MEDS: Sennosides/Docusate Sodium 50-8.6 MG Tab PO SCH (21:43)
[2024-08-08 06:09] LABS: HEMATOCRIT 29.9 % (34.3-46.0); HEMOGLOBIN 9.7 g/dL (11.2-15.5); MEAN CORPUSCULAR HEMOGLOBIN 27.5 pg (31.6-35.5); MEAN CORPUSCULAR HGB CONC 32.4 g/dL (31.6-35.5); MEAN CORPUSCULAR VOLUME 84.7 fL (81.4-99.0); RED BLOOD CELL COUNT 3.53 M/uL (3.77-5.24); WHITE BLOOD CELL COUNT,WBC 7.3 K/uL (3.2-11.0)
[2024-08-08 06:24] LABS: CALCIUM 8.2 mg/dL (8.5-10.1); CREATININE 0.7 mg/dL (0.6-1.0); EST CRCL DRUG DOSING (CG) 66.55 mL/min
== END 2024-08-08 11:40 | disposition home or self-care (01) | DRG 663 ==
LOC: JP.MS 14:10
PROVIDERS: ADMIT Internal Medicine; ATTEND Internal Medicine
PROC: 30233N1 Transfusion of Nonautologous Red Blood Cells into Peripheral Vein, Percutaneous Approach (ICD-10-PCS; principal; 2024-08-05)
PROC: 30233N1 Transfusion of Nonautologous Red Blood Cells into Peripheral Vein, Percutaneous Approach (ICD-10-PCS; 2024-08-06)
PROC: 30233N1 Transfusion of Nonautologous Red Blood Cells into Peripheral Vein, Percutaneous Approach (ICD-10-PCS; 2024-08-07)
DX: D50.8 Other iron deficiency anemias (principal); K91.2 Postsurgical malabsorption, not elsewhere classified; E87.6 Hypokalemia; I25.10 Atherosclerotic heart disease of native coronary artery without angina pectoris; I10 Essential (primary) hypertension; H54.7 Unspecified visual loss; E03.9 Hypothyroidism, unspecified; Z88.5 Allergy status to narcotic agent; Z88.8 Allergy status to other drugs, medicaments and biological substances; Z88.1 Allergy status to other antibiotic agents; Z79.82 Long term (current) use of aspirin; Z79.899 Other long term (current) drug therapy; Z87.81 Personal history of (healed) traumatic fracture; I25.2 Old myocardial infarction; Z95.5 Presence of coronary angioplasty implant and graft; Z85.3 Personal history of malignant neoplasm of breast; Z90.89 Acquired absence of other organs; Z98.890 Other specified postprocedural states; Z90.710 Acquired absence of both cervix and uterus; Z90.49 Acquired absence of other specified parts of digestive tract; Z90.10 Acquired absence of unspecified breast and nipple; Z87.891 Personal history of nicotine dependence; Z98.84 Bariatric surgery status
CPT/HCPCS: 36415; 36430; 80048; 80053; 82728; 83550; 83735; 85018; 85025; 85027; 86850; 86900; 86901; 86920; 86922; 99222; 99232; 99238; A9270-GY; J1100; J1200; J1756; J1885; J7030; P9016

== ENCOUNTER 2024-12-23 07:25 | Day surgery (SDC) | payer BC ==
[2024-12-23] MEDS: Lactated Ringers 1,000 ML IV SCH (08:22)
[2024-12-23] MEDS ORDERED: Midazolam 1 MG/ML 2 ML SDV ONE (08:48)
[2024-12-23] MEDS ORDERED: Propofol 200 MG/20 ML SDV ONE (08:48)
[2024-12-23] MEDS ORDERED: fentaNYL 50 MCG/ML SDV ONE (08:48)
== END 2024-12-23 10:30 | disposition home or self-care (01) ==
LOC: JP.SDS 07:25
PROVIDERS: ATTEND Surgery
DX: R10.13 Epigastric pain (principal); I10 Essential (primary) hypertension; I25.10 Atherosclerotic heart disease of native coronary artery without angina pectoris
CPT/HCPCS: 00731; 43235; J1642; J2250; J2704; J3010; J7120

== ENCOUNTER 2025-01-20 16:55 | Inpatient (IN) | payer BC ==
[2025-01-20] MEDS ORDERED: Ketorolac 30 MG/ML SDV IVPUSH PRN (17:28)
[2025-01-20] MEDS ORDERED: Magnesium Hydroxide 400 MG/5 ML Susp 30 ML Cup PO PRN (17:28)
[2025-01-20] MEDS ORDERED: Ondansetron 4 MG Tab.DIS PO PRN (17:28)
[2025-01-20] MEDS ORDERED: Ondansetron 4 MG/2 ML SDV IV PRN (17:28)
[2025-01-20] MEDS ORDERED: diphenhydrAMINE 50 MG/ML SDV IVPUSH PRN (17:32)
[2025-01-20 17:48] LABS: PLATELET COUNT,PLT 269.0 K/uL (130-375); RED BLOOD CELL COUNT 4.16 M/uL (3.77-5.24); WHITE BLOOD CELL COUNT,WBC 6.8 K/uL (3.2-11.0)
[2025-01-20] MEDS: diphenhydrAMINE 50 MG/ML SDV IVPUSH ONE (18:09)
[2025-01-20 18:20] LABS: BLOOD UREA NITROGEN,BUN 25 mg/dL (7-18); CARBON DIOXIDE,CO2 31 mmol/L (21-32); CHLORIDE,CL 105 mmol/L (100-108); CREATININE 0.8 mg/dL (0.6-1.0); ESTIMATED GFR 83 mL/min (>60); GLUCOSE RANDOM 111 mg/dL (74-106); POTASSIUM,K 3.9 mmol/L (3.6-5.2); SODIUM,NA 141 mmol/L (140-148)
[2025-01-20 18:23] LABS: IRON,FE 25 ug/dL (50-170); PERCENT FE SATURATION 7 % (20-55)
[2025-01-20] MEDS: Dexamethasone 4 MG/ML SDV IVPUSH ONE (18:43)
[2025-01-20] MEDS: Sennosides/Docusate Sodium 50-8.6 MG Tab PO SCH (20:14)
[2025-01-20] MEDS ORDERED: Dexamethasone 4 MG/ML SDV IVPUSH PRN (22:30)
[2025-01-21] MEDS: Calcium Carbonate/Vitamin D3 1500 MG-400 Units Tab PO SCH (08:30)
[2025-01-21] MEDS: Cholecalciferol (Vitamin D3) 25 MCG Tab PO SCH (08:32)
[2025-01-21] MEDS: Cyanocobalamin (Vitamin B12) 1,000 MCG Tab PO SCH (08:33)
[2025-01-21] MEDS: Ketorolac 15 MG/ML SDV IVPUSH PRN (08:41)
[2025-01-21] MEDS ORDERED: Non-Formulary Medication 1 Each (Estradiol [Estrace 0.01% Vaginal Crm] 42.5 GM Tube) SCH (09:00)
== END 2025-01-22 11:30 | disposition home or self-care (01) | DRG 663 ==
LOC: JP.MS 16:55
PROVIDERS: ADMIT Internal Medicine; ATTEND Internal Medicine
DX: D50.9 Iron deficiency anemia, unspecified (principal); H54.7 Unspecified visual loss; I25.10 Atherosclerotic heart disease of native coronary artery without angina pectoris; K59.09 Other constipation; K91.2 Postsurgical malabsorption, not elsewhere classified; I10 Essential (primary) hypertension; E03.9 Hypothyroidism, unspecified; I25.2 Old myocardial infarction; Z95.5 Presence of coronary angioplasty implant and graft; Z88.8 Allergy status to other drugs, medicaments and biological substances; Z88.0 Allergy status to penicillin; Z88.1 Allergy status to other antibiotic agents; Z88.5 Allergy status to narcotic agent; Z79.899 Other long term (current) drug therapy; Z79.82 Long term (current) use of aspirin; Z79.890 Hormone replacement therapy; Z87.81 Personal history of (healed) traumatic fracture; Z85.3 Personal history of malignant neoplasm of breast; Z90.89 Acquired absence of other organs; Z98.84 Bariatric surgery status; Z90.49 Acquired absence of other specified parts of digestive tract; Z98.890 Other specified postprocedural states; Z90.710 Acquired absence of both cervix and uterus; Z90.10 Acquired absence of unspecified breast and nipple; Z87.891 Personal history of nicotine dependence
CPT/HCPCS: 36415; 80048; 82728; 83550; 85027; 99222; 99232; 99238; A9270-GY; J1100; J1200; J1756; J1885; J7030; J7050